=== PATIENT | male | born 1945 | race Caucasian/White ===

== ENCOUNTER 2016-11-17 19:58 | Inpatient (IN) | payer MEDICARE, BC ==
[~2016-11-17] VITALS: Ht 172.7 cm; Wt 65.0 kg
[~2016-11-17 19:58] MED LIST: RAMI10CA PO
[2016-11-17 20:02] VITALS: BP 193/84; PULSE 89; RESP 15; TEMP 98; O2SAT 98
--- NOTE | 2016-11-17 20:05 | PD ---
Physical Exam Date Seen by Provider: November 17, 2016 Time Seen by Provider: 20:02 Narrative 71 YOWM H/O L THIGH SARCOMA SURGERY September . NOW FOR THE PAST WEEK. POS D/C AND INCREASED PAIN. ON BACTRIM DS FOR 1 WEEK. NO N/V/F/C. PAIN 07/18. VSS AWAITING BED PLACEMENT MDM Medical Record Reviewed: No Supervised Visit with JAZLYN: Sriram Floyd November 17, 2016 20:05
--- NOTE | 2016-11-17 20:18 | PD ---
HPI Chief Complaint: Skin Problem Time Seen by Provider: 20:17 Travel History International Travel<30 days: No Contact w/Intl Traveler<30days: No Traveled to known affect area: No History of Present Illness HPI 71-year-old male with PMH of aortic stenosis, PAD, sarcoma of the left leg, resected 10/[address] Ronnie Berry in [place] presents to the ED for evaluation of 1 week history of increased redness and pain at the surgery site. Patient also complains of pain in the superior aspect of the anterior knee with flexion. He denies fevers, chills, nausea, vomiting. The patient states that he attempted to reach his surgeon who is out of [place]. He saw his primary care provider Dr. Rosa, who spoke with the surgeons partner and was placed on Bactrim DS. He endorses compliance of the medication without improvement of symptoms. PFSH Past Surgical History Cardiac Surgery: Yes (r. angioplasty) Social History Alcohol Use: No Tobacco Use: Yes (09/09 ppd) Substance Use: No Allergies-Medications (Allergen,Severity, Reaction): Coded Allergies: Cephalosporins (Verified Allergy, Severe, 11/17/16) Keflex (Verified Allergy, Severe, 11/17/16) Penicillin (Verified Allergy, Severe, 11/17/16) Reported Meds & Prescriptions Reported Meds & Active Scripts Active Reported Simvastatin 10 Mg Tab 10 Mg PO DAILY Ramipril 10 Mg Cap 10 Mg PO DAILY Review of Systems Except as stated in HPI: all other systems reviewed are Neg Physical Exam Narrative GENERAL: Well-nourished, well-developed pleasant white male in no acute distress. SKIN: Focused skin assessment warm/dry. There is a healing surgical wound on the lateral aspect of the distal left thigh. This is surrounded by a 2-3 cm area of warm, tender and edematous erythema. No fluctuance noted. No cellulitic streaking. HEAD: Normocephalic. EYES: No scleral icterus. No injection or drainage. NECK: Supple, trachea midline. No JVD or lymphadenopathy. CARDIOVASCULAR: Regular rate and rhythm. Harsh systolic murmur heard best over the right upper sternal border. No rubs or gallops noted. RESPIRATORY: Breath sounds clear and equal bilaterally. No accessory muscle use. GASTROINTESTINAL: Abdomen soft, non-tender, nondistended. Active bowel sounds. MUSCULOSKELETAL: No cyanosis, or edema. FOCUSED LEFT LOWER EXTREMITY EXAM: 2+ DP pulse. Tender to palpation of the superior aspect of the patella. Pain elicited with flexion of the knee. Some limitation to flexion which the patient states is chronic since his surgery. Patient otherwise retains full, active ROM of the extremity. Sensation intact to light touch distally. Cap refill less than 2 seconds. BACK: Nontender without obvious deformity. No CVA tenderness. Data Data Last Documented VS Vital Signs Date Time Temp Pulse Resp B/P Pulse Ox O2 Delivery O2 Flow Rate FiO2 11/17/16 20:02 98.0 89 15 193/84 98 Room Air Orders Complete Blood Count With Diff (11/17/16 20:33) Iv Access Insert/Monitor (11/17/16 20:33) Basic Metabolic Panel (Bmp) (11/17/16 20:33) C-Reactive Protein (Crp) (11/17/16 20:33) Westergren Sedimentation Rate (11/17/16 20:33) Femur (Ap & Lat/2vws) (11/17/16 20:33) Knee, Ltd (1 Or 2vws) (11/17/16 20:33) Blood Culture (11/17/16 21:21) Vancomycin Inj (Vancomycin Inj) (11/17/16 21:30) Admit Order (Ed Use Only) (11/17/16 22:13) Labs Laboratory Tests Test 11/17/16 21:00 White Blood Count 5.0 TH/MM3 Red Blood Count 4.22 MIL/MM3 Hemoglobin 13.6 GM/DL Hematocrit 39.3 % Mean Corpuscular Volume 93.0 FL Mean Corpuscular Hemoglobin 32.3 PG Mean Corpuscular Hemoglobin 34.7 % Concent Red Cell Distribution Width 12.9 % Platelet Count 159 TH/MM3 Mean Platelet Volume 8.3 FL Neutrophils (%) (Auto) 45.7 % Lymphocytes (%) (Auto) 26.6 % Monocytes (%) (Auto) 18.7 % Eosinophils (%) (Auto) 7.6 % Basophils (%) (Auto) 1.4 % Neutrophils # (Auto) 2.3 TH/MM3 Lymphocytes # (Auto) 1.3 TH/MM3 Monocytes # (Auto) 0.9 TH/MM3 Eosinophils # (Auto) 0.4 TH/MM3 Basophils # (Auto) 0.1 TH/MM3 CBC Comment DIFF FINAL Differential Comment Erythrocyte Sedimentation Rate 19 mm/hr Sodium Level 138 MEQ/L Potassium Level 4.3 MEQ/L Chloride Level 106 MEQ/L Carbon Dioxide Level 23.9 MEQ/L Anion Gap 8 MEQ/L Blood Urea Nitrogen 28 MG/DL Creatinine 1.65 MG/DL Estimat Glomerular Filtration 41 ML/MIN Rate Random Glucose 96 MG/DL Calcium Level 8.5 MG/DL C-Reactive Protein LESS THAN 0.29 MG/DL MDM Medical Decision Making Medical Screen Exam Complete: Yes Emergency Medical Condition: Yes Differential Diagnosis Cellulitis versus abscess versus wound infection versus sepsis versus other Narrative Course 71-year-old male with PMH of aortic stenosis, PAD, sarcoma of the left leg, resected 10/[address] Ronnie Berry in [place] presents to the ED for evaluation of 1 week history of increased redness and pain at the surgery site. Patient also complains of pain in the superior aspect of the anterior knee with flexion. He denies fevers, chills, nausea, vomiting. The patient states that he attempted to reach his surgeon who is out of country. He saw his primary care provider Dr. Rosa, who spoke with the surgeons partner and was placed on Bactrim DS. Oncology: Krochak. Vitals reviewed. Physical exam reveals a pleasant white male in no acute distress. There is a healing surgical wound on the lateral aspect of the distal left thigh surrounded by a 2- 3 cm area of warm, tender and edematous erythema. No fluctuance or cellulitic streaking noted. There is tenderness to palpation at the superior aspect of the patella with minor limitation to ROM, chronic since surgery. IV was established. Blood cultures were obtained. CBC: No leukocytosis BMP: BUN 28, creatinine 1.65 CRP less than 0.29 ESR 19 Xray: Prepatellar effusion. Administered 1 g IV vancomycin. He has failed outpatient treatment and will be admitted for further evaluation of left lower extremity cellulitis. I spoke with Dr. Fowler who agrees to accept the patient to the medicine service. Please see medicine notes for disposition Trini Mcduffie November 17, 2016 20:18
[2016-11-17] MEDS ORDERED: CLINDAMYCIN INJ 900 MG in SODIUM CHLORIDE 0.9% INJ 100 ML IV ONE (20:45)
--- NOTE | 2016-11-17 21:03 | RADRPT ---
EXAM DATE/TIME: 11/17/2016 20:44 [facility] COMPARISON: No previous studies available for comparison. INDICATIONS : Left femur pain, redness, and drainage at incision site post sarcoma removal on left lateral distal f emur/knee. MEDICAL HISTORY : None. SURGICAL HISTORY : Sarcoma removal, left femur/knee. ENCOUNTER: Initial ACUITY: 1 week PAIN SCORE: 3/10 LOCATION: Left femur. FINDINGS: Two view examination of the left femur demonstrates no evidence of fracture or dislocation. Bony min eralization is normal. There are surgical clips in the distal soft tissues. Vascular calcifications a re noted.. CONCLUSION: No acute bony findings Florian Cabello MD on November 17, 2016 at 21:01 Board Certified Radiologist. This report was verified electronically.
--- NOTE | 2016-11-17 21:04 | RADRPT ---
EXAM DATE/TIME: 11/17/2016 20:47 [facility] COMPARISON: No previous studies available for comparison. INDICATIONS : Left knee pain, tightness, redness, and drainage at incision site post sarcoma removal on left latera l lower femur/knee. MEDICAL HISTORY : None. SURGICAL HISTORY : Sarcoma removal, left femur/knee. ENCOUNTER: Initial ACUITY: 1 week PAIN SCORE: 3/10 LOCATION: Left knee. FINDINGS: The knee is intact without evidence of fracture, dislocation or bony destruction. There is some supra patellar soft tissue density which may indicate small effusion. Surgical clips are present in the dis karson thigh. Vascular calcifications are noted. CONCLUSION: Suprapatellar effusion or swelling. No acute bony findings. Florian Cabello MD on November 17, 2016 at 21:01 Board Certified Radiologist. This report was verified electronically.
[2016-11-17] MEDS ORDERED: RAMI10CA PO (21:07)
[2016-11-17] MEDS ORDERED: SIMV10TA PO (21:07)
[2016-11-17 21:27] LABS: AUTOMATED NEUTROPHIL # 2.3 TH/MM3 (1.8-7.7); BASOPHIL # 0.1 TH/MM3 (0-0.2); BASOPHIL % 1.4 % (0.0-2.0); EOSINOPHIL # 0.4 TH/MM3 (0-0.4); EOSINOPHIL % 7.6 % (0.0-4.0); HEMATOCRIT 39.3 % (39.0-51.0); HEMO FLAGS DIFF FINAL; LYMPH % 26.6 % (9.0-44.0); LYMPHOCYTE # 1.3 TH/MM3 (1.0-4.8); MEAN CORPUSCULAR HEMOGLOBIN 32.3 PG (27.0-34.0); MEAN CORPUSCULAR HGB CONC 34.7 % (32.0-36.0); MONO % 18.7 % (0.0-8.0); NEUT % 45.7 % (16.0-70.0); PLATELET COUNT 159 TH/MM3 (150-450); RED BLOOD COUNT 4.22 MIL/MM3 (4.50-5.90); RED CELL DISTRIBUTION WIDTH 12.9 % (11.6-17.2)
[2016-11-17] MEDS ORDERED: VANCOMYCIN INJ 1,000 MG in SODIUM CHLOR 0.9% 250 ML INJ 250 ML IV ONE (21:30)
[2016-11-17 22:06] LABS: ANION GAP 8 MEQ/L (5-15); BICARBONATE 23.9 MEQ/L (21.0-32.0); BLOOD UREA NITROGEN 28 MG/DL (7-18); CHLORIDE 106 MEQ/L (98-107); GLOMERULAR FILTRATION RATE 41 ML/MIN (>89); POTASSIUM 4.3 MEQ/L (3.5-5.1); SODIUM (NA) 138 MEQ/L (136-145)
--- NOTE | 2016-11-17 22:17 | PD ---
Physical Exam Narrative Patient was seen and examined with my offset assistant press operator. Data Data Last Documented VS Vital Signs Date Time Temp Pulse Resp B/P Pulse Ox O2 Delivery O2 Flow Rate FiO2 11/17/16 20:02 98.0 89 15 193/84 98 Room Air Orders Complete Blood Count With Diff (11/17/16 20:33) Iv Access Insert/Monitor (11/17/16 20:33) Basic Metabolic Panel (Bmp) (11/17/16 20:33) C-Reactive Protein (Crp) (11/17/16 20:33) Westergren Sedimentation Rate (11/17/16 20:33) Femur (Ap & Lat/2vws) (11/17/16 20:33) Knee, Ltd (1 Or 2vws) (11/17/16 20:33) Blood Culture (11/17/16 21:21) Vancomycin Inj (Vancomycin Inj) (11/17/16 21:30) Admit Order (Ed Use Only) (11/17/16 22:13) Labs Laboratory Tests Test 11/17/16 21:00 White Blood Count 5.0 TH/MM3 Red Blood Count 4.22 MIL/MM3 Hemoglobin 13.6 GM/DL Hematocrit 39.3 % Mean Corpuscular Volume 93.0 FL Mean Corpuscular Hemoglobin 32.3 PG Mean Corpuscular Hemoglobin 34.7 % Concent Red Cell Distribution Width 12.9 % Platelet Count 159 TH/MM3 Mean Platelet Volume 8.3 FL Neutrophils (%) (Auto) 45.7 % Lymphocytes (%) (Auto) 26.6 % Monocytes (%) (Auto) 18.7 % Eosinophils (%) (Auto) 7.6 % Basophils (%) (Auto) 1.4 % Neutrophils # (Auto) 2.3 TH/MM3 Lymphocytes # (Auto) 1.3 TH/MM3 Monocytes # (Auto) 0.9 TH/MM3 Eosinophils # (Auto) 0.4 TH/MM3 Basophils # (Auto) 0.1 TH/MM3 CBC Comment DIFF FINAL Differential Comment Erythrocyte Sedimentation Rate 19 mm/hr Sodium Level 138 MEQ/L Potassium Level 4.3 MEQ/L Chloride Level 106 MEQ/L Carbon Dioxide Level 23.9 MEQ/L Anion Gap 8 MEQ/L Blood Urea Nitrogen 28 MG/DL Creatinine 1.65 MG/DL Estimat Glomerular Filtration 41 ML/MIN Rate Random Glucose 96 MG/DL Calcium Level 8.5 MG/DL C-Reactive Protein LESS THAN 0.29 MG/DL MDM Supervised Visit with JAZLYN: Yes Narrative Course Patient was seen and examined with my offset assistant press operator. Agree with the plan. Tian Vides MD November 17, 2016 22:17
[2016-11-17] MEDS ORDERED: ACETAMINOPHEN/HYDROcodone 325 MG/5 MG TAB PO PRN (22:30)
[2016-11-17] MEDS ORDERED: Vancomycin Consult Pharmacy 1 EA OTHER SCH (22:30)
[2016-11-17] MEDS ORDERED: ACETAMINOPHEN 325 MG TAB PO PRN (22:30)
[2016-11-17] MEDS ORDERED: SODIUM CHLORIDE 0.9% FLUSH 10 ML FLUSH IV FLUSH PRN (22:30)
[2016-11-17] MEDS ORDERED: BISACODYL 10 MG SUPP RECTAL PRN (22:30)
[2016-11-17] MEDS ORDERED: ONDANSETRON HCL 4 MG/2 ML VIAL IVP PRN (22:30)
[2016-11-17] MEDS ORDERED: MORPHINE SULFATE 4 MG/ML INJ IV PRN (22:30)
--- NOTE | 2016-11-17 22:32 | HHI.HP ---
[facility] Service [place] [facility] Primary Care Physician Janes Segura M.D. Admission Diagnosis cellulitis left lower extremity Diagnoses: (1) Lower extremity cellulitis Diagnosis: Principal (2) Failure of outpatient treatment Diagnosis: Principal (3) Sarcoma Diagnosis: Principal (4) Renal insufficiency Diagnosis: Principal (5) HTN (hypertension) Diagnosis: Principal (6) Tobacco abuse Diagnosis: Principal Travel History International Travel<30 Days: No Contact w/Intl Traveler <30 Da: No Traveled to Known Affected Are: No History of Present Illness This is a 71-year-old male with a PMH of HTN, Aortic Stenosis and Left Leg Sarcoma s/p Resection who presented to the ER w/ complaints of progressive redness at surgical site. States he underwent Left Leg Sarcoma Resection on by Dr. Berry in [place], had been doing well post-operatively until approx 1wk ago when he noted redness and mild purulent drainage from surgical site. Seen by PCP who contacted surgeon in [place] and started on Bactrim x4 days w/ no improvement. On arrival, BP 193/84, HR 89, O2 sat 98% on RA, Afebrile. CBC essentially unremarkable. Creatinine 1.65, previously 1.13 on 07/25/16. Knee X-ray with suprapatellar effusion, no acute findings. Femur X -ray with no acute findings. S/p Blood Cultures and IV Vanc in ER. Review of Systems Except as stated in HPI: all other systems reviewed are Neg ROS: 14 point review of systems otherwise negative. Past Family Social History Past Medical History PMH: HTN, Aortic Stenosis and Left Leg Sarcoma s/p Resection Past Surgical History PAST SURGICAL HISTORY: Angioplasty, Back Fusion, Elbow Surgery, Sarcoma Removal Left Thigh Allergies: Coded Allergies: Cephalosporins (Verified Allergy, Severe, 11/17/16) Keflex (Verified Allergy, Severe, 11/17/16) Penicillin (Verified Allergy, Severe, 11/17/16) Family History PAST FAMILY HISTORY: Reviewed. No h/o DM or CAD Social History PAST SOCIAL HISTORY: Negative for alcohol or drugs. Smokes 3/4ppd. Physical Exam Vital Signs Vital Signs Date Time Temp Pulse Resp B/P Pulse Ox O2 Delivery O2 Flow Rate FiO2 11/17/16 20:02 98.0 89 15 193/84 98 Room Air Physical Exam PE: GENERAL: Extremely pleasant elderly white male in no acute distress. Daughter at bedside. HEENT: PERRLA, EOMI. No scleral icterus or conjunctival pallor. No lid lag or facial droop. CARDIOVASCULAR: Regular rate and rhythm. No obvious murmurs to auscultation. No chest tenderness to palpation. RESPIRATORY: No obvious rhonchi or wheezing. Clear to auscultation. Breath sounds equal bilaterally. GASTROINTESTINAL: Abdomen soft, non-tender, nondistended. BS normal. MUSCULOSKELETAL: Extremities without clubbing, cyanosis, or edema. No obvious deformities. Left thigh, surgical incision w/ surrounding erythema, no purulent drainage noted NEUROLOGICAL: Awake, alert and oriented x4. No focal neurologic deficits. Moving both upper and lower extremities spontaneously. Laboratory Laboratory Tests Test 11/17/16 21:00 White Blood Count 5.0 Red Blood Count 4.22 Hemoglobin 13.6 Hematocrit 39.3 Mean Corpuscular Volume 93.0 Mean Corpuscular Hemoglobin 32.3 Mean Corpuscular Hemoglobin 34.7 Concent Red Cell Distribution Width 12.9 Platelet Count 159 Mean Platelet Volume 8.3 Neutrophils (%) (Auto) 45.7 Lymphocytes (%) (Auto) 26.6 Monocytes (%) (Auto) 18.7 Eosinophils (%) (Auto) 7.6 Basophils (%) (Auto) 1.4 Neutrophils # (Auto) 2.3 Lymphocytes # (Auto) 1.3 Monocytes # (Auto) 0.9 Eosinophils # (Auto) 0.4 Basophils # (Auto) 0.1 CBC Comment DIFF FINAL Differential Comment Erythrocyte Sedimentation Rate 19 Sodium Level 138 Potassium Level 4.3 Chloride Level 106 Carbon Dioxide Level 23.9 Anion Gap 8 Blood Urea Nitrogen 28 Creatinine 1.65 Estimat Glomerular Filtration 41 Rate Random Glucose 96 Calcium Level 8.5 C-Reactive Protein LESS THAN 0.29 Date/Time Procedure Status Source Growth 11/17/16 21:40 Aerobic Blood Culture Received Blood Line Pending 11/17/16 21:40 Anaerobic Blood Culture Received Blood Line Pending Result Diagram: 11/17/16209911/17/162099 Assessment and Plan Problem List: (1) Lower extremity cellulitis ICD Code: L03.119 Status: Acute (2) Failure of outpatient treatment ICD Code: Z78.9 Status: Acute (3) Sarcoma ICD Code: C49.9 Status: Acute (4) Renal insufficiency ICD Code: N28.9 Status: Acute (5) HTN (hypertension) ICD Code: I10 Status: Acute (6) Tobacco abuse ICD Code: Z72.0 Status: Acute Assessment and Plan A/P: 1. Left Thigh Cellulitis: surgical site w/ surrounding erythema. Knee X-ray w / suprapatellar effusion, Femur X-ray with no acute bony abnormality, images reviewed by me. S/p Blood Cultures and IV Vanc in ER, follow up cultures, continue w/ IV Abx. 2. Failed Outpt Tx: On Bactrim as outpatient x4 days w/ no improvement, will continue w/ IV Abx as above. 3. Sarcoma: H/o Left Thigh Sarcoma s/p resection 10/03/[address] Berry in [place], has upcoming appt for outpatient follow up. 4. Renal Insufficiency: KALEE. Creatinine 1.65, previously 1.13 on 07/25/16, IVF for hydration, repeat labs in am. Hold Ramipril in light of renal insufficiency. 5. HTN: Normally well controlled on Ramipril, BP 190's on arrival, currently BP 136/61, HR 60. Will monitor. 6. Tobacco Abuse: Pt counselled on the need to quit. NicoDerm prn if needed. 7. DVT Prophylaxis: Mechanical contraindication in light of LE wound. 8. Social work for d/c planning as needed. 9. Case discussed w/ ER physician at length. Physician Certification 2 Midnight Certification Type: Admission for Inpatient Services Order for Inpatient Services The services are ordered in accordance with Medicare regulations or non- Medicare payer requirements, as applicable. In the case of services not specified as inpatient-only, they are appropriately provided as inpatient services in accordance with the 2-midnight benchmark. Estimated LOS (days): 2 days is the estimated time the patient will need to remain in the hospital, assuming treatment plan goals are met and no additional complications. Post-Hospital Plan: Not yet determined Yanelis Fowler MD November 17, 2016 22:32
[2016-11-17 22:40] VITALS: BP 132/63
[2016-11-17 23:17] VITALS: BP 136/61
[2016-11-18] VITALS: BP 152/67; PULSE 52; RESP 20; TEMP 96.5; O2SAT 99
[2016-11-18] MEDS: SODIUM CHLOR 0.9% 1000 ML INJ 1,000 ML IV SCH ×3 (01:40→18:23)
[2016-11-18 04:00] VITALS: BP 110/52; PULSE 59; RESP 20; TEMP 97.2; O2SAT 96
[2016-11-18 08:07] VITALS: BP 122/58; PULSE 57; RESP 18; TEMP 97.2; O2SAT 95
[2016-11-18 08:56] LABS: AUTOMATED NEUTROPHIL # 1.6 TH/MM3 (1.8-7.7); BASOPHIL # 0.1 TH/MM3 (0-0.2); BASOPHIL % 1.7 % (0.0-2.0); EOSINOPHIL # 0.3 TH/MM3 (0-0.4); HEMATOCRIT 38.3 % (39.0-51.0); HEMO FLAGS DIFF FINAL; LYMPHOCYTE # 0.9 TH/MM3 (1.0-4.8); MEAN CELL VOLUME 93.8 FL (80.0-100.0); MEAN CORPUSCULAR HEMOGLOBIN 31.3 PG (27.0-34.0); MEAN CORPUSCULAR HGB CONC 33.4 % (32.0-36.0); MONO % 20.2 % (0.0-8.0); NEUT % 45.1 % (16.0-70.0); PLATELET COUNT 149 TH/MM3 (150-450); RED BLOOD COUNT 4.08 MIL/MM3 (4.50-5.90); WHITE BLOOD COUNT 3.6 TH/MM3 (4.0-11.0)
[2016-11-18] MEDS: SODIUM CHLORIDE 0.9% FLUSH 10 ML FLUSH IV FLUSH SCH ×2 (08:58→21:00)
[2016-11-18] MEDS: PRAVASTATIN SOD 20 MG TAB PO SCH (08:58)
[2016-11-18 09:23] LABS: ALKALINE PHOSPHATASE 95 U/L (45-117); ALT (GPT) 17 U/L (12-78); AST (GOT) 19 U/L (15-37); BICARBONATE 24.6 MEQ/L (21.0-32.0); BLOOD UREA NITROGEN 20 MG/DL (7-18); CHLORIDE 108 MEQ/L (98-107); GLOMERULAR FILTRATION RATE 57 ML/MIN (>89); POTASSIUM 4.3 MEQ/L (3.5-5.1); SODIUM (NA) 139 MEQ/L (136-145); TOTAL BILIRUBIN ADULT 0.4 MG/DL (0.2-1.0)
[2016-11-18 09:24] LABS: ANION GAP 6 MEQ/L (5-15)
--- NOTE | 2016-11-18 09:25 | HHI.PR ---
Subjective Remarks The patient disimpact says does not have any fever or chills over night. Denies nausea or vomiting. He has constipation at times due to narcotic use. Pain is fairly controlled by medications. He is eating well. Objective Vitals Vital Signs Date Time Temp Pulse Resp B/P Pulse Ox O2 Delivery O2 Flow Rate FiO2 11/18/16 08:07 97.2 57 18 122/58 95 11/18/16 04:00 97.2 59 20 110/52 96 11/18/16 00:00 96.5 52 20 152/67 99 11/17/16 23:17 60 16 136/61 97 11/17/16 22:40 132/63 11/17/16 20:02 98.0 89 15 193/84 98 Room Air I/O 11/17/16 11/17/16 11/17/16 11/18/16 11/18/16 11/18/16 07:00 15:00 23:00 07:00 15:00 23:00 Intake Total 600 ml Output Total 1 ml Balance 599 ml Intake IV Total 600 ml Output Urine Total 1 ml # Voids 1 1 # Bowel Movements 0 Result Diagram: 11/18/16 0759 11/17/16 2100 Imaging Last Impressions Knee X-Ray 11/17/162032 Signed Impressions: Service Date/Time: Thursday, November 17, 2016 20:47 - CONCLUSION: Suprapatellar effusion or swelling. No acute bony findings. Florian Cabello MD Femur X-Ray 11/17/162032 Signed Impressions: Service Date/Time: Thursday, November 17, 2016 20:44 - CONCLUSION: No acute bony findings Florian Cablelo MD Objective Remarks GENERAL: Extremely pleasant elderly white male in no acute distress. Daughter at bedside. HEENT: PERRLA, EOMI. No scleral icterus or conjunctival pallor. No lid lag or facial droop. CARDIOVASCULAR: Regular rate and rhythm. No obvious murmurs to auscultation. No chest tenderness to palpation. RESPIRATORY: No obvious rhonchi or wheezing. Clear to auscultation. Breath sounds equal bilaterally. GASTROINTESTINAL: Abdomen soft, non-tender, nondistended. BS normal. MUSCULOSKELETAL: Extremities without clubbing, cyanosis, or edema. No obvious deformities. Left thigh, surgical incision w/ surrounding erythema, no purulent drainage noted NEUROLOGICAL: Awake, alert and oriented x4. No focal neurologic deficits. Moving both upper and lower extremities spontaneously. A/P Problem List: (1) Lower extremity cellulitis ICD Code: L03.119 Status: Acute (2) Failure of outpatient treatment ICD Code: Z78.9 Status: Acute (3) Sarcoma ICD Code: C49.9 Status: Acute (4) Renal insufficiency ICD Code: N28.9 Status: Acute (5) HTN (hypertension) ICD Code: I10 Status: Acute (6) Tobacco abuse ICD Code: Z72.0 Status: Acute Assessment and Plan Left Thigh Cellulitis: surgical site w/ surrounding erythema. Knee X-ray w/ suprapatellar effusion, Femur X-ray with no acute bony abnormality, images reviewed by me. S/p Blood Cultures and IV Vanc in ER, follow up cultures, continue w/ IV Abx. Failed Outpt Tx: On Bactrim as outpatient x4 days w/ no improvement, will continue w/ IV Abx as above. Sarcoma: H/o Left Thigh Sarcoma s/p resection 10/03/[address] Berry in [place], has upcoming appt for outpatient follow up. Renal Insufficiency: KALEE. Creatinine 1.65, previously 1.13 on 07/25/16, IVF for hydration, repeat labs in am. Hold Ramipril in light of renal insufficiency. HTN: Normally well controlled on Ramipril, BP 190's on arrival, currently BP 136/61, HR 60. Will monitor. Tobacco Abuse: Pt counselled on the need to quit. NicoDerm prn if needed. Constipation: Laxatives/stool softeners as needed DVT Prophylaxis: Mechanical contraindication in light of LE wound. CM consult for d/c planning as needed. Discussed with the patient, nurse Lizeth Pérez MD November 18, 2016 09:25
[2016-11-18 12:05] VITALS: BP 115/55; PULSE 61; RESP 19; TEMP 96.2; O2SAT 97
[2016-11-18 16:43] VITALS: BP 131/60; PULSE 55; RESP 19; TEMP 96.7; O2SAT 96
--- NOTE | 2016-11-18 17:19 | MB ---
cc: EVERARDO ORTIZ MD DATE OF CONSULTATION: 11/18/2016. REASON FOR CONSULTATION: Cellulitis of the left lower extremity. Failed outpatient antibiotics. History of sarcoma. REQUESTING PHYSICIAN: Dr. Pérez. 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 The patient received radiation therapy postop. He finished a course of 25 rounds of radiation therapy. The patient noted for the past week he was having some drainage of a very light amount of fluid from the left side at the incision and that the incision area was sore when rubbing against his pants. He was put on Bactrim for a week after he saw his physician and was not improving and therefore he was evaluated in the emergency department where he presented on 11/17/2016. The patient says that he was just getting full motion of his leg. He has been doing exercises to improve the motion. The patient was admitted to the hospital and started on IV antibiotics. He is currently on intravenous vancomycin. Blood cultures were taken and have no growth. His white blood cell count was normal yesterday at 5.0. Today's white count is low 3.6. Plain x-ray of the left femur showed no acute bony findings. There was some suprapatellar soft tissue density which may indicate a small effusion. The patient states that he feels fine. He has no other symptoms besides mild soreness at the surgical site. There is erythema along the incision but no significant swelling. There is an area with dried, crusty tissue at the incision around the mid area near the knee at the upper portion of the thigh. I was able to express a very few drops of clear yellow fluid. The rest of the incision is dry. The patient is comfortable. PAST MEDICAL HISTORY: 1. Hypertension. 2. Aortic stenosis. 3. 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 4. Back fusion surgery. 5. Elbow surgery. ALLERGIES: 1. PENICILLIN. 2. KEFLEX. 3. CEPHALOSPORIN. MEDICATIONS: 1. Vancomycin. 2. Pravachol. SOCIAL HISTORY: The patient smokes 3/4 pack of cigarettes a day. No alcohol use. No illicit drugs. FAMILY HISTORY: Family history is noncontributory. REVIEW OF SYSTEMS GENERAL No fever or chills. HEAD, EYES, EARS, NOSE, THROAT: No visual blurring or diplopia. No difficulty swallowing or soreness of the throat. No nasal drainage. NECK: No swelling or pain. CARDIOVASCULAR: No palpitations. No chest pain. RESPIRATORY: No cough. No shortness of breath. GASTROINTESTINAL: Denies nausea, vomiting, pain or diarrhea. GENITOURINARY: He denies urgency, frequency or dysuria. MUSCULOSKELETAL: Significant for mild soreness of the left thigh. ENDOCRINE: No polyuria. No polydipsia. HEMATOPOIETIC: No easy bruising or bleeding. PSYCHIATRIC: No mood problems or problems with depression. PHYSICAL EXAMINATION: GENERAL: This is a pleasant well-developed male who is in no acute distress. He is awake alert and oriented. VITAL SIGNS: The vital signs include a temperature of 96.2, blood pressure 115/55, respirations 19, heart rate 61. HEAD, EYES, EARS, NOSE, THROAT: Extraocular movements grossly intact. Pupils reactive to light. No icterus. Oropharynx with no visible lesions. NECK: The neck is supple without adenopathy. LUNGS: Clear breath sounds. HEART: Regular S1 and S2. No murmurs. No rubs. No gallops. ABDOMEN: Bowel sounds present, soft, nontender. RECTAL: Not performed. EXTREMITIES: The left lateral thigh has a surgical incision longitudinal. There is erythema along the incision and there is some crusted dried skin over the middle aspect of the incision. No tenderness on palpation. The left knee appears swollen. SKIN: No diffuse rash. NEUROLOGIC: Nonfocal. PSYCHIATRIC: The patient is calm and cooperative. LABORATORY DATA: WBCs 3.6, platelets 149,000, 20% monocytes, 24% lymphocytes, 45% neutrophils. Creatinine 1.24, BUN 20, sodium 139. Liver function tests normal. IMPRESSION: 1. Cellulitis of the left leg postop. 2. Patient status post resection of sarcoma from the left thigh. 3. Acute kidney injury. RECOMMENDATIONS: 1. Obtain a culture from the scant drainage occurring at the left lateral thigh wound. 2. Continue vancomycin. 3. Monitor the cultures to determine antibiotic treatment in a patient who has multiple antibiotic allergies. Thank you for this consultation. The patient's culture will be monitored and the antibiotic will be adjusted depending on the culture results. It might be difficult to determine antibiotic by mouth for this patient since he has low platelets on account of his Zyvox. If he does have gram-negative bacteria in the culture, it would probably be easier to treat if he has a bacteria which is sensitive to ciprofloxacin. Because of his kidney function, we may want to avoid Bactrim but it all depends on how his renal function improves over time. Thank you for this consultation. Everardo Ortiz MD FD/ANKUR /4:43 PM /5:02 PM
[2016-11-18 20:00] VITALS: BP 140/66; PULSE 65; RESP 20; TEMP 96.8; O2SAT 96
[2016-11-18] MEDS ORDERED: VANCOMYCIN 1,000 MG/NS 250 ML IV SCH ×2 (21:00)
[2016-11-19] VITALS: BP 127/60; PULSE 55; RESP 20; TEMP 96.3; O2SAT 97
[2016-11-19 04:00] VITALS: BP 123/58; PULSE 67; RESP 20; TEMP 96.3; O2SAT 95
[2016-11-19] MEDS: SODIUM CHLOR 0.9% 1000 ML INJ 1,000 ML IV SCH ×2 (04:23→13:51)
[2016-11-19 07:51] LABS: AUTOMATED NEUTROPHIL # 1.8 TH/MM3 (1.8-7.7); BASOPHIL # 0.1 TH/MM3 (0-0.2); BASOPHIL % 1.5 % (0.0-2.0); EOSINOPHIL # 0.3 TH/MM3 (0-0.4); HEMATOCRIT 38.7 % (39.0-51.0); HEMO FLAGS DIFF FINAL; LYMPH % 29.1 % (9.0-44.0); LYMPHOCYTE # 1.1 TH/MM3 (1.0-4.8); MEAN CELL VOLUME 93.8 FL (80.0-100.0); MEAN CORPUSCULAR HEMOGLOBIN 31.6 PG (27.0-34.0); MEAN CORPUSCULAR HGB CONC 33.7 % (32.0-36.0); MONO % 17.2 % (0.0-8.0); NEUT % 45.2 % (16.0-70.0); PLATELET COUNT 139 TH/MM3 (150-450); RED BLOOD COUNT 4.13 MIL/MM3 (4.50-5.90); RED CELL DISTRIBUTION WIDTH 13.1 % (11.6-17.2); WHITE BLOOD COUNT 3.9 TH/MM3 (4.0-11.0)
[2016-11-19 08:11] VITALS: BP 138/63; PULSE 57; RESP 18; TEMP 96; O2SAT 95
[2016-11-19 08:20] LABS: BICARBONATE 24.8 MEQ/L (21.0-32.0); POTASSIUM 4.6 MEQ/L (3.5-5.1)
[2016-11-19] MEDS: SODIUM CHLORIDE 0.9% FLUSH 10 ML FLUSH IV FLUSH SCH ×2 (09:00→21:17)
[2016-11-19] MEDS: PRAVASTATIN SOD 20 MG TAB PO SCH (10:10)
--- NOTE | 2016-11-19 10:53 | HHI.PR ---
Subjective Remarks Patient seen and examined this morning. His vitals are stable he's afebrile. Feels well without complaints. Family at bedside. Asking for med to have BM. Objective Vital Signs Date Time Temp Pulse Resp B/P Pulse Ox O2 Delivery O2 Flow Rate FiO2 11/19/16 08:11 96.0 57 18 138/63 95 11/19/16 04:00 96.3 67 20 123/58 95 11/19/16 00:00 96.3 55 20 127/60 97 11/18/16 20:00 96.8 65 20 140/66 96 11/18/16 16:43 96.7 55 19 131/60 96 11/18/16 12:05 96.2 61 19 115/55 97 I/O 11/18/16 11/18/16 11/18/16 11/19/16 11/19/16 11/19/16 07:00 15:00 23:00 07:00 15:00 23:00 Intake Total 600 ml 2352 ml 60 ml Output Total 1 ml Balance 599 ml 2352 ml 60 ml Intake Oral 360 ml 60 ml IV Total 600 ml 1992 ml Output Urine Total 1 ml # Voids 1 1 4 4 # Bowel Movements 0 0 0 Result Diagram: 11/19/16 0706 11/19/16 07 Imaging Last Impressions Knee X-Ray 11/17/162032 Signed Impressions: Service Date/Time: Thursday, November 17, 2016 20:47 - CONCLUSION: Suprapatellar effusion or swelling. No acute bony findings. Florian Cabello MD Femur X-Ray 11/17/162032 Signed Impressions: Service Date/Time: Thursday, November 17, 2016 20:44 - CONCLUSION: No acute bony findings Florian Cabello MD Objective Remarks GENERAL: Extremely pleasant elderly white male in no acute distress. Daughter at bedside. HEENT: PERRLA, EOMI. No scleral icterus or conjunctival pallor. No lid lag or facial droop. CARDIOVASCULAR: Regular rate and rhythm. No obvious murmurs to auscultation. No chest tenderness to palpation. RESPIRATORY: No obvious rhonchi or wheezing. Clear to auscultation. Breath sounds equal bilaterally. GASTROINTESTINAL: Abdomen soft, non-tender, nondistended. BS normal. MUSCULOSKELETAL: Extremities without clubbing, cyanosis, or edema. No obvious deformities. Left thigh, surgical incision w/ surrounding erythema, dry purulent drainage is present but not actively draining. NEUROLOGICAL: Awake, alert and oriented x4. No focal neurologic deficits. Moving both upper and lower extremities spontaneously. A/P Problem List: (1) Sarcoma ICD Code: C49.9 (2) Renal insufficiency ICD Code: N28.9 (3) Tobacco abuse ICD Code: Z72.0 (4) HTN (hypertension) ICD Code: I10 (5) Lower extremity cellulitis ICD Code: L03.119 (6) Failure of outpatient treatment ICD Code: Z78.9 Assessment and Plan 71-year-old male with Left Thigh Cellulitis: surgical site w/ surrounding erythema. Knee X-ray w/ suprapatellar effusion, Femur X-ray with no acute bony abnormality. Blood cultures negative x 2 days. Continue vancomycin. ID consulted to assist with abx coverage. Failed Outpt Tx: On Bactrim as outpatient x4 days w/ no improvement, will continue w/ IV Abx as above. Sarcoma: H/o Left Thigh Sarcoma s/p resection 10/03/[address] Berry in [place], has upcoming appt for outpatient follow up. Renal Insufficiency: KALEE. Improving. Hold Ramipril in light of renal insufficiency. HTN: well controlled on Ramipril Tobacco Abuse: Pt counselled on the need to quit. NicoDerm prn if needed. Constipation: Laxatives/stool softeners as needed, milk of mag now. DVT Prophylaxis: Renally dosed Lovenox CM consult for d/c planning as needed. Discharge Planning DC pending clinical improvement, follow cultures. Abx coverage per ID. Jo-Ann Simental MD R3 November 19, 2016 10:53
[2016-11-19] MEDS ORDERED: MAGNESIUM HYDROXIDE SUSP 30 ML CUP PO ONE (11:30)
[2016-11-19 12:44] VITALS: BP 135/62; PULSE 56; RESP 18; TEMP 95.9; O2SAT 98
[2016-11-19] MEDS: VANCOMYCIN 1,000 MG/NS 250 ML IV SCH ×2 (14:02)
[2016-11-19] MEDS: ENOXAPARIN SODIUM 30 MG/0.3 ML SYRINGE SQ SCH (16:00)
--- NOTE | 2016-11-19 16:40 | HHI.IDPN ---
Note Infectious Disease Note Patient complains of swelling of his left knee. Unable to fully bend the knee. Afebrile. PAST MEDICAL HISTORY: 1. Hypertension. 2. Aortic stenosis. 3. 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 4. Back fusion surgery. 5. Elbow surgery. ALLERGIES: 1. PENICILLIN. 2. KEFLEX. 3. CEPHALOSPORIN. ANTIBIOTICS: Vancomycin. OBJECTIVE: Vital Signs Date Time Temp Pulse Resp B/P Pulse Ox O2 Delivery O2 Flow Rate FiO2 11/19/16 12:44 95.9 56 18 135/62 98 11/19/16 08:11 96.0 57 18 138/63 95 11/19/16 04:00 96.3 67 20 123/58 95 11/19/16 00:00 96.3 55 20 127/60 97 11/18/16 20:00 96.8 65 20 140/66 96 11/18/16 16:43 96.7 55 19 131/60 96 11/18/16 11/18/16 11/19/16 15:00 23:00 07:00 Intake Total 2352 ml 60 ml Balance 2352 ml 60 ml Intake Oral 360 ml 60 ml IV Total 1992 ml # Voids 1 4 4 # Bowel Movements 0 0 Laboratory Tests Test 11/17/16 11/18/16 11/19/16 21:00 07:59 07:06 White Blood Count 5.0 TH/MM3 3.6 TH/MM3 3.9 TH/MM3 Red Blood Count 4.22 MIL/MM3 4.08 MIL/MM3 4.13 MIL/MM3 Hemoglobin 13.6 GM/DL 12.8 GM/DL 13.1 GM/DL Hematocrit 39.3 % 38.3 % 38.7 % Mean Corpuscular Volume 93.0 FL 93.8 FL 93.8 FL Mean Corpuscular Hemoglobin 32.3 PG 31.3 PG 31.6 PG Mean Corpuscular Hemoglobin 34.7 % 33.4 % 33.7 % Concent Red Cell Distribution Width 12.9 % 13.0 % 13.1 % Platelet Count 159 TH/MM3 149 TH/MM3 139 TH/MM3 Mean Platelet Volume 8.3 FL 8.9 FL 8.4 FL Neutrophils (%) (Auto) 45.7 % 45.1 % 45.2 % Lymphocytes (%) (Auto) 26.6 % 24.0 % 29.1 % Monocytes (%) (Auto) 18.7 % 20.2 % 17.2 % Eosinophils (%) (Auto) 7.6 % 9.0 % 7.0 % Basophils (%) (Auto) 1.4 % 1.7 % 1.5 % Neutrophils # (Auto) 2.3 TH/MM3 1.6 TH/MM3 1.8 TH/MM3 Lymphocytes # (Auto) 1.3 TH/MM3 0.9 TH/MM3 1.1 TH/MM3 Monocytes # (Auto) 0.9 TH/MM3 0.7 TH/MM3 0.7 TH/MM3 Eosinophils # (Auto) 0.4 TH/MM3 0.3 TH/MM3 0.3 TH/MM3 Basophils # (Auto) 0.1 TH/MM3 0.1 TH/MM3 0.1 TH/MM3 CBC Comment DIFF FINAL DIFF FINAL DIFF FINAL Differential Comment Erythrocyte Sedimentation Rate 19 mm/hr Laboratory Tests Test 11/17/16 11/18/16 11/19/16 21:00 07:59 07:06 Sodium Level 138 MEQ/L 139 MEQ/L 139 MEQ/L Potassium Level 4.3 MEQ/L 4.3 MEQ/L 4.6 MEQ/L Chloride Level 106 MEQ/L 108 MEQ/L 109 MEQ/L Carbon Dioxide Level 23.9 MEQ/L 24.6 MEQ/L 24.8 MEQ/L Anion Gap 8 MEQ/L 6 MEQ/L 5 MEQ/L Blood Urea Nitrogen 28 MG/DL 20 MG/DL 12 MG/DL Creatinine 1.65 MG/DL 1.24 MG/DL 1.08 MG/DL Estimat Glomerular Filtration 41 ML/MIN 57 ML/MIN 67 ML/MIN Rate Random Glucose 96 MG/DL 85 MG/DL 88 MG/DL Calcium Level 8.5 MG/DL 8.2 MG/DL 8.4 MG/DL C-Reactive Protein LESS THAN 0.29 MG/DL Total Bilirubin 0.4 MG/DL Aspartate Amino Transf 19 U/L (AST/SGOT) Alanine Aminotransferase 17 U/L (ALT/SGPT) Alkaline Phosphatase 95 U/L Total Protein 6.6 GM/DL Albumin 3.3 GM/DL Microbiology Date/Time Procedure Status Source Growth 11/17/16 21:20 Aerobic Blood Culture - Preliminary Resulted Blood Line NO GROWTH IN 2 DAYS 11/17/16 21:20 Anaerobic Blood Culture - Preliminary Resulted Blood Line NO GROWTH IN 2 DAYS 11/17/16 21:40 Aerobic Blood Culture - Preliminary Resulted Blood Line NO GROWTH IN 2 DAYS 11/17/16 21:40 Anaerobic Blood Culture - Preliminary Resulted Blood Line NO GROWTH IN 2 DAYS PHYSICAL EXAMINATION: GENERAL: No acute distress. He is awake alert and oriented. HEAD, EYES, EARS, NOSE, THROAT: No icterus. Oropharynx with no visible lesions. NECK: The neck is supple without adenopathy. LUNGS: Clear breath sounds. HEART: Regular S1 and S2. No murmurs. No rubs. No gallops. ABDOMEN: Bowel sounds present, soft, nontender. EXTREMITIES: The left lateral thigh has a surgical incision longitudinal. The erythema along the incision is decreased. The left knee remains swollen. SKIN: No diffuse rash. NEUROLOGIC: Nonfocal. PSYCHIATRIC: The patient is calm and cooperative. IMPRESSION: 1. Cellulitis of the left leg postop. 2. Patient status post resection of sarcoma from the left thigh. 3. Acute kidney injury. RECOMMENDATIONS: 1. Monitor wound culture. 2. Continue vancomycin. 3. Orthopedic consult for l. knee swelling. Could probably be discharged on PO antibiotics tomorrow. Tj Diaz MD November 19, 2016 16:40
[2016-11-19 16:46] VITALS: BP 148/67; PULSE 56; RESP 16; TEMP 96.4; O2SAT 95
[2016-11-19 20:00] VITALS: BP_SYST 124; BP_SYST 137; BP_DIAS 60; BP_DIAS 66; PULSE 60; PULSE 61; RESP 20; TEMP 96.7; TEMP 98.1; O2SAT 96; O2SAT 98
[2016-11-19] MEDS: DOCUSATE SODIUM 50 MG/SENNA 8.6 MG TAB PO SCH (21:17)
[2016-11-20] MEDS: SODIUM CHLOR 0.9% 1000 ML INJ 1,000 ML IV SCH ×3 (00:23→19:38)
[2016-11-20 04:00] VITALS: BP 120/58; PULSE 67; RESP 20; TEMP 97; O2SAT 97
[2016-11-20 06:57] LABS: AUTOMATED NEUTROPHIL # 2.6 TH/MM3 (1.8-7.7); BASOPHIL # 0.1 TH/MM3 (0-0.2); BASOPHIL % 1.7 % (0.0-2.0); EOSINOPHIL # 0.4 TH/MM3 (0-0.4); EOSINOPHIL % 6.8 % (0.0-4.0); HEMATOCRIT 42.7 % (39.0-51.0); HEMO FLAGS DIFF FINAL; LYMPH % 30.3 % (9.0-44.0); LYMPHOCYTE # 1.6 TH/MM3 (1.0-4.8); MEAN CELL VOLUME 94.5 FL (80.0-100.0); MEAN CORPUSCULAR HEMOGLOBIN 30.8 PG (27.0-34.0); MEAN CORPUSCULAR HGB CONC 32.6 % (32.0-36.0); MONO % 12.6 % (0.0-8.0); NEUT % 48.6 % (16.0-70.0); PLATELET COUNT 150 TH/MM3 (150-450); RED BLOOD COUNT 4.52 MIL/MM3 (4.50-5.90); RED CELL DISTRIBUTION WIDTH 12.9 % (11.6-17.2); WHITE BLOOD COUNT 5.3 TH/MM3 (4.0-11.0)
[2016-11-20 07:25] LABS: BICARBONATE 26.4 MEQ/L (21.0-32.0); POTASSIUM 4.5 MEQ/L (3.5-5.1)
[2016-11-20 07:48] VITALS: BP 129/66; PULSE 64; RESP 18; TEMP 95.7; O2SAT 97
[2016-11-20] MEDS: DOCUSATE SODIUM 50 MG/SENNA 8.6 MG TAB PO SCH (09:13)
[2016-11-20] MEDS: SODIUM CHLORIDE 0.9% FLUSH 10 ML FLUSH IV FLUSH SCH (09:13)
[2016-11-20] MEDS: PRAVASTATIN SOD 20 MG TAB PO SCH (09:13)
[2016-11-20] MEDS: VANCOMYCIN 1,000 MG/NS 250 ML IV SCH ×2 (09:13)
--- NOTE | 2016-11-20 10:54 | HHI.PR ---
Subjective Remarks Follow up for left knee pain, cellulitis. Patient is doing well. However, he complains of persistent left knee pain on any movement. No fever, chills. Objective Vitals Vital Signs Date Time Temp Pulse Resp B/P Pulse Ox O2 Delivery O2 Flow Rate FiO2 11/20/16 07:48 95.7 64 18 129/66 97 11/20/16 04:00 97.0 67 20 120/58 97 11/19/16 20:00 98.1 60 20 137/66 98 11/19/16 20:00 96.7 61 20 124/60 96 11/19/16 16:46 96.4 56 16 148/67 95 11/19/16 12:44 95.9 56 18 135/62 98 I/O 11/19/16 11/19/16 11/19/16 11/20/16 11/20/16 11/20/16 07:00 15:00 23:00 07:00 15:00 23:00 Intake Total 60 ml 240 ml 60 ml Output Total 880 ml Balance 60 ml -640 ml 60 ml Intake Oral 60 ml 240 ml 60 ml Output Urine Total 880 ml # Voids 4 1 2 # Bowel Movements 0 0 0 Result Diagram: 11/20/16 0600 11/20/16 0606 Imaging Last Impressions Knee X-Ray 11/17/162032 Signed Impressions: Service Date/Time: Thursday, November 17, 2016 20:47 - CONCLUSION: Suprapatellar effusion or swelling. No acute bony findings. Florian Cabello MD Femur X-Ray 11/17/162032 Signed Impressions: Service Date/Time: Thursday, November 17, 2016 20:44 - CONCLUSION: No acute bony findings Florian Cabello MD Objective Remarks GENERAL: AOX3. NAD. SKIN: Warm and dry. HEAD: Normocephalic. EYES: No scleral icterus. No injection or drainage. NECK: Supple, trachea midline. No JVD or lymphadenopathy. CARDIOVASCULAR: Regular rate and rhythm without murmurs, gallops, or rubs. RESPIRATORY: Breath sounds equal bilaterally. No accessory muscle use. GASTROINTESTINAL: Abdomen soft, non-tender, nondistended. MUSCULOSKELETAL: No cyanosis, or edema. Left lower thigh, lateral aspect s/p sarcoma surgery, mild erythema. Pain on left knee movement. BACK: Nontender without obvious deformity. No CVA tenderness. Procedures None. A/P Problem List: (1) Lower extremity cellulitis ICD Code: L03.119 Status: Acute (2) Failure of outpatient treatment ICD Code: Z78.9 Status: Acute (3) Sarcoma ICD Code: C49.9 Status: Acute (4) Renal insufficiency ICD Code: N28.9 Status: Acute (5) HTN (hypertension) ICD Code: I10 Status: Acute (6) Tobacco abuse ICD Code: Z72.0 Status: Acute Assessment and Plan This is a 71-year-old male with a PMH of HTN, Aortic Stenosis and Left Leg Sarcoma s/p Resection who presented to the ER w/ complaints of progressive redness at surgical site. States he underwent Left Leg Sarcoma Resection on by Dr. Berry in [place], had been doing well post-operatively until approx 1wk ago when he noted redness and mild purulent drainage from surgical site. Seen by PCP who contacted surgeon in [place] and started on Bactrim x4 days w/ no improvement. - Left Thigh Cellulitis: surgical site w/ surrounding erythema. Knee X-ray w/ suprapatellar effusion, Femur X-ray with no acute bony abnormality. Blood cultures negative x 2 days. - Continue vancomycin. ID following. - Failed outpatient treatment with Bactrim x4 days w/ no improvement, will continue w/ IV Abx as above. - Left knee pain - ID consulted Orthopedic surgery. Dr. Lyons is out of office and thus a new consult placed for Dr. Elaine who is covering Dr. Lyons. - Continue [place] for pain. - IF no further work up indicated and Orthopedic surgery clears, patient can potentially be discharged on oral abx today. - Sarcoma: H/o Left Thigh Sarcoma s/p resection 10/03/[address] Berry in [place], has upcoming appt for outpatient follow up. - Acute kidney injury - Improved. Creatinine 1.65 --> 1.13. HTN: well controlled on Ramipril Tobacco Abuse: Pt counselled on the need to quit. NicoDerm prn if needed. Constipation: Laxatives/stool softeners as needed, milk of mag now. Full code. Lovenox. Faustina Mai DO November 20, 2016 10:54 am
[2016-11-20 11:55] VITALS: BP 157/66; PULSE 52; RESP 18; TEMP 96.5; O2SAT 97
--- NOTE | 2016-11-20 12:48 | HHI.IDPN ---
Note Infectious Disease Note Patient continue to complain of swelling of his left knee. Unable to fully bend the knee. Afebrile. No drainage from l. thigh incision. PAST MEDICAL HISTORY: 1. Hypertension. 2. Aortic stenosis. 3. 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 4. Back fusion surgery. 5. Elbow surgery. ALLERGIES: 1. PENICILLIN. 2. KEFLEX. 3. CEPHALOSPORIN. ANTIBIOTICS: Vancomycin. OBJECTIVE: Vital Signs Date Time Temp Pulse Resp B/P Pulse Ox O2 Delivery O2 Flow Rate FiO2 11/19/16 12:44 95.9 56 18 135/62 98 11/19/16 08:11 96.0 57 18 138/63 95 11/19/16 04:00 96.3 67 20 123/58 95 11/19/16 00:00 96.3 55 20 127/60 97 11/18/16 20:00 96.8 65 20 140/66 96 11/18/16 16:43 96.7 55 19 131/60 96 11/18/16 11/18/16 11/19/16 15:00 23:00 07:00 Intake Total 2352 ml 60 ml Balance 2352 ml 60 ml Intake Oral 360 ml 60 ml IV Total 1992 ml # Voids 1 4 4 # Bowel Movements 0 0 Laboratory Tests Test 11/17/16 11/18/16 11/19/16 21:00 07:59 07:06 White Blood Count 5.0 TH/MM3 3.6 TH/MM3 3.9 TH/MM3 Red Blood Count 4.22 MIL/MM3 4.08 MIL/MM3 4.13 MIL/MM3 Hemoglobin 13.6 GM/DL 12.8 GM/DL 13.1 GM/DL Hematocrit 39.3 % 38.3 % 38.7 % Mean Corpuscular Volume 93.0 FL 93.8 FL 93.8 FL Mean Corpuscular Hemoglobin 32.3 PG 31.3 PG 31.6 PG Mean Corpuscular Hemoglobin 34.7 % 33.4 % 33.7 % Concent Red Cell Distribution Width 12.9 % 13.0 % 13.1 % Platelet Count 159 TH/MM3 149 TH/MM3 139 TH/MM3 Mean Platelet Volume 8.3 FL 8.9 FL 8.4 FL Neutrophils (%) (Auto) 45.7 % 45.1 % 45.2 % Lymphocytes (%) (Auto) 26.6 % 24.0 % 29.1 % Monocytes (%) (Auto) 18.7 % 20.2 % 17.2 % Eosinophils (%) (Auto) 7.6 % 9.0 % 7.0 % Basophils (%) (Auto) 1.4 % 1.7 % 1.5 % Neutrophils # (Auto) 2.3 TH/MM3 1.6 TH/MM3 1.8 TH/MM3 Lymphocytes # (Auto) 1.3 TH/MM3 0.9 TH/MM3 1.1 TH/MM3 Monocytes # (Auto) 0.9 TH/MM3 0.7 TH/MM3 0.7 TH/MM3 Eosinophils # (Auto) 0.4 TH/MM3 0.3 TH/MM3 0.3 TH/MM3 Basophils # (Auto) 0.1 TH/MM3 0.1 TH/MM3 0.1 TH/MM3 CBC Comment DIFF FINAL DIFF FINAL DIFF FINAL Differential Comment Erythrocyte Sedimentation Rate 19 mm/hr Laboratory Tests Test 11/17/16 11/18/16 11/19/16 21:00 07:59 07:06 Sodium Level 138 MEQ/L 139 MEQ/L 139 MEQ/L Potassium Level 4.3 MEQ/L 4.3 MEQ/L 4.6 MEQ/L Chloride Level 106 MEQ/L 108 MEQ/L 109 MEQ/L Carbon Dioxide Level 23.9 MEQ/L 24.6 MEQ/L 24.8 MEQ/L Anion Gap 8 MEQ/L 6 MEQ/L 5 MEQ/L Blood Urea Nitrogen 28 MG/DL 20 MG/DL 12 MG/DL Creatinine 1.65 MG/DL 1.24 MG/DL 1.08 MG/DL Estimat Glomerular Filtration 41 ML/MIN 57 ML/MIN 67 ML/MIN Rate Random Glucose 96 MG/DL 85 MG/DL 88 MG/DL Calcium Level 8.5 MG/DL 8.2 MG/DL 8.4 MG/DL C-Reactive Protein LESS THAN 0.29 MG/DL Total Bilirubin 0.4 MG/DL Aspartate Amino Transf 19 U/L (AST/SGOT) Alanine Aminotransferase 17 U/L (ALT/SGPT) Alkaline Phosphatase 95 U/L Total Protein 6.6 GM/DL Albumin 3.3 GM/DL Microbiology Date/Time Procedure Status Source Growth 11/17/16 21:20 Aerobic Blood Culture - Preliminary Resulted Blood Line NO GROWTH IN 2 DAYS 11/17/16 21:20 Anaerobic Blood Culture - Preliminary Resulted Blood Line NO GROWTH IN 2 DAYS 11/17/16 21:40 Aerobic Blood Culture - Preliminary Resulted Blood Line NO GROWTH IN 2 DAYS 11/17/16 21:40 Anaerobic Blood Culture - Preliminary Resulted Blood Line NO GROWTH IN 2 DAYS PHYSICAL EXAMINATION: GENERAL: No acute distress. He is awake alert and oriented. HEAD, EYES, EARS, NOSE, THROAT: No icterus. Oropharynx with no visible lesions. NECK: The neck is supple without adenopathy. LUNGS: Clear breath sounds. HEART: Regular S1 and S2. No murmurs. No rubs. No gallops. ABDOMEN: Bowel sounds present, soft, nontender. EXTREMITIES: The left lateral thigh has a surgical incision longitudinal. The erythema along the incision is decreased. The left knee remains swollen. SKIN: No diffuse rash. NEUROLOGIC: Nonfocal. PSYCHIATRIC: The patient is calm and cooperative. IMPRESSION: 1. Cellulitis of the left leg postop. 2. Patient status post resection of sarcoma from the left thigh. 3. Acute kidney injury. RECOMMENDATIONS: 1. Monitor wound culture. 2. Orthopedic consult for l. knee swelling pending. 3. Can be discharged on PO doxycycline 100mg PO bid x 7 days once ortho sees him. Keep on Vancomycin if he needs ortho intervention. Tj Diaz MD November 20, 2016 12:48
[2016-11-20 15:50] VITALS: BP 150/64; PULSE 62; RESP 18; TEMP 97.3; O2SAT 97
[2016-11-20] MEDS: ENOXAPARIN SODIUM 30 MG/0.3 ML SYRINGE SQ SCH (16:53)
--- NOTE | 2016-11-20 19:48 | PD.CONS ---
HPI Service Orthopedic Surgeons Consult Requested By Reason for Consult Severe left knee pain Primary Care Physician Janes Segura M.D. 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 Patient develop cellulitis to left thigh to the distal aspect of incision with severe pain to left knee. He was brought to [facility] ED for further evaluation. X-rays were done, which demonstrated suprapatella effusion. No acute bony findings. Patient was admitted to medical with consultation to orthopedics. Past Family Social History Past Medical History PMH: HTN, Aortic Stenosis and Left Leg Sarcoma s/p Resection Past Surgical History PAST SURGICAL HISTORY: Angioplasty, Back Fusion, Elbow Surgery, Sarcoma Removal Left Thigh Allergies: Coded Allergies: Cephalosporins (Verified Allergy, Severe, 11/17/16) Keflex (Verified Allergy, Severe, 11/17/16) Penicillin (Verified Allergy, Severe, 11/17/16) Active Ordered Medications Current Medications Medications (Trade) Dose Ordered Sig/Smith Route Start Time Stop Time Status Last Admin Pharmacy Profile Note 0 ml @ 0 mls/hr UNSCH OTHER 11/17/16 22:30 (NS 1000 ml Inj) 1,000 ml @ 100 mls/hr Q10H IV 11/17/16 22:23 11/19/16 13:51 (NS Flush) 2 ml UNSCH PRN IV FLUSH 11/17/16 22:30 (NS Flush) 2 ml BID IV FLUSH 11/18/16 09:00 11/20/16 09:13 (Zofran Inj) 4 mg Q6H PRN IVP 11/17/16 22:30 (Dulcolax Supp) 10 mg DAILY PRN RECTAL 11/17/16 22:30 (Tylenol) 650 mg Q6H PRN PO 11/17/16 22:30 ([place] 5-325 Mg) 1 tab Q4H PRN PO 11/17/16 22:30 (Morphine Inj) 2 mg Q3H PRN IV 11/17/16 22:30 (Pravachol) 20 mg DAILY PO 11/18/16 09:00 11/20/16 09:13 Miscellaneous Information SPECIFIC LAB TO BE NU... ONCE ONCE .XX 11/21/16 02:45 11/21/16 02:46 (Lovenox Inj) 30 mg Q24H SQ 11/19/16 16:00 11/20/16 16:53 Senna/Docusate Sodium 1 tab 1 tab BID PO 11/19/16 21:00 11/20/16 09:13 (Vancomycin Inj/ NS 250 ml Inj) 250 ml @ 250 mls/hr Q18H IV 11/19/16 15:00 11/20/16 09:13 Reported Meds & Active Scripts Active Reported Simvastatin 10 Mg Tab 10 Mg PO DAILY Ramipril 10 Mg Cap 10 Mg PO DAILY Family History PAST FAMILY HISTORY: Reviewed. No h/o DM or CAD Social History PAST SOCIAL HISTORY: Negative for alcohol or drugs. Smokes 3/4ppd. Physical Exam Vital Signs Vital Signs Date Time Temp Pulse Resp B/P Pulse Ox O2 Delivery O2 Flow Rate FiO2 11/20/16 15:50 97.3 62 18 150/64 97 11/20/16 11:55 96.5 52 18 157/66 97 11/20/16 07:48 95.7 64 18 129/66 97 11/20/16 04:00 97.0 67 20 120/58 97 11/19/16 20:00 98.1 60 20 137/66 98 11/19/16 20:00 96.7 61 20 124/60 96 Physical Exam Left knee 0/0/85 skin intact minimal effusion able to reproduce pain with flexion of knee no erythema noted calves soft negative Homans 2+ dorsalis pedis pulses Left thigh mild erythema minimal serous drainage note to distal aspect of incision Laboratory Laboratory Tests Test 11/20/16 11/20/16 06:00 06:06 White Blood Count 5.3 Red Blood Count 4.52 Hemoglobin 13.9 Hematocrit 42.7 Mean Corpuscular Volume 94.5 Mean Corpuscular Hemoglobin 30.8 Mean Corpuscular Hemoglobin 32.6 Concent Red Cell Distribution Width 12.9 Platelet Count 150 Mean Platelet Volume 8.9 Neutrophils (%) (Auto) 48.6 Lymphocytes (%) (Auto) 30.3 Monocytes (%) (Auto) 12.6 Eosinophils (%) (Auto) 6.8 Basophils (%) (Auto) 1.7 Neutrophils # (Auto) 2.6 Lymphocytes # (Auto) 1.6 Monocytes # (Auto) 0.7 Eosinophils # (Auto) 0.4 Basophils # (Auto) 0.1 CBC Comment DIFF FINAL Differential Comment Sodium Level 138 Potassium Level 4.5 Chloride Level 105 Carbon Dioxide Level 26.4 Anion Gap 7 Blood Urea Nitrogen 11 Creatinine 1.13 Estimat Glomerular Filtration 64 Rate Random Glucose 97 Calcium Level 8.8 Date/Time Procedure Status Source Growth 11/19/16 16:27 Gram Stain - Final Resulted Wound Thigh 11/19/16 16:27 Wound Culture - Preliminary Resulted Wound Thigh NO GROWTH IN 24 HOURS. 11/17/16 21:40 Aerobic Blood Culture - Preliminary Resulted Blood Line NO GROWTH IN 3 DAYS 11/17/16 21:40 Anaerobic Blood Culture - Preliminary Resulted Blood Line NO GROWTH IN 3 DAYS Result Diagram: 11/20/16 0600 11/20/16 0606 Assessment & Plan Problem List: (1) Lower extremity cellulitis Assessment and Plan Patient's condition was discussed, his options of treatment was discussed. Evaluated with daughter present. The option of I & D is a consideration, but at this time it does not appear to be a deep infection. Patient is asymptomatic and labs are normal. Reviewed x-rays in detail with patient, which demonstrate no osteoarthritis present. Suprapatellar effusion noted. We are hopeful that as his knee/thigh symptoms improves, his ROM will improve. Continue with conservative care. Continue course of antibiotic per ID. Orthopedically stable for discharge. Patient states he will f/u with surgeon in [place]. Patient's case discussed with Dr. Hannon over the phone in front of the patient. Mykel Selby November 20, 2016 19:48
[2016-11-20 20:00] VITALS: BP 148/68; PULSE 59; RESP 20; TEMP 96.7; O2SAT 97
[2016-11-20] MEDS ORDERED: DOXY100C PO (20:09)
--- NOTE | 2016-11-20 20:11 | HHI.DS ---
Discharge Summary Admission Date November 17, 2016 at 22:15 Discharge Date: November 20, 2016 Admitting Diagnosis cellulitis left lower extremity (1) Lower extremity cellulitis ICD Code: L03.119 (2) Failure of outpatient treatment ICD Code: Z78.9 (3) Sarcoma ICD Code: C49.9 (4) Renal insufficiency ICD Code: N28.9 (5) HTN (hypertension) ICD Code: I10 (6) Tobacco abuse ICD Code: Z72.0 Procedures None. Brief History - From Admission This is a 71-year-old male with a PMH of HTN, Aortic Stenosis and Left Leg Sarcoma s/p Resection who presented to the ER w/ complaints of progressive redness at surgical site. States he underwent Left Leg Sarcoma Resection on by Dr. Berry in [place], had been doing well post-operatively until approx 1wk ago when he noted redness and mild purulent drainage from surgical site. Seen by PCP who contacted surgeon in [place] and started on Bactrim x4 days w/ no improvement. On arrival, BP 193/84, HR 89, O2 sat 98% on RA, Afebrile. CBC essentially unremarkable. Creatinine 1.65, previously 1.13 on 07/25/16. Knee X-ray with suprapatellar effusion, no acute findings. Femur X -ray with no acute findings. S/p Blood Cultures and IV Vanc in ER. CBC/BMP: 11/20/16 0600 11/20/16 0606 Significant Findings Laboratory Tests Test 11/17/16 11/18/16 11/19/16 11/20/16 21:00 07:59 07:06 06:00 Red Blood Count 4.22 MIL/MM3 4.08 MIL/MM3 4.13 MIL/MM3 (4.50-5.90) (4.50-5.90) (4.50-5.90) Monocytes (%) (Auto) 18.7 % 20.2 % 17.2 % 12.6 % (0.0-8.0) (0.0-8.0) (0.0-8.0) (0.0-8.0) Eosinophils (%) (Auto) 7.6 % (0.0-4.0) 9.0 % (0.0-4.0) 7.0 % (0.0-4.0) 6.8 % ( 0.0-4.0) Blood Urea Nitrogen 28 MG/DL (7-18) 20 MG/DL (7-18) Creatinine 1.65 MG/DL (0.60-1.30) Estimat Glomerular Filtration 41 ML/MIN (>89) 57 ML/MIN (>89) 67 ML/MIN (>89) Rate White Blood Count 3.6 TH/MM3 3.9 TH/MM3 (4.0-11.0) (4.0-11.0) Hemoglobin 12.8 GM/DL (13.0-17.0) Hematocrit 38.3 % 38.7 % (39.0-51.0) (39.0-51.0) Platelet Count 149 TH/MM3 139 TH/MM3 (150-450) (150-450) Neutrophils # (Auto) 1.6 TH/MM3 (1.8-7.7) Lymphocytes # (Auto) 0.9 TH/MM3 (1.0-4.8) Chloride Level 108 MEQ/L 109 MEQ/L (98-107) (98-107) Calcium Level 8.2 MG/DL 8.4 MG/DL (8.5-10.1) (8.5-10.1) Albumin 3.3 GM/DL (3.4-5.0) Test 11/20/16 06:06 Estimat Glomerular Filtration 64 ML/MIN (>89) Rate PE at Discharge GENERAL: AOX3. NAD. SKIN: Warm and dry. HEAD: Normocephalic. EYES: No scleral icterus. No injection or drainage. NECK: Supple, trachea midline. No JVD or lymphadenopathy. CARDIOVASCULAR: Regular rate and rhythm without murmurs, gallops, or rubs. RESPIRATORY: Breath sounds equal bilaterally. No accessory muscle use. GASTROINTESTINAL: Abdomen soft, non-tender, nondistended. MUSCULOSKELETAL: No cyanosis, or edema. Left lower thigh, lateral aspect s/p sarcoma surgery, mild erythema. Pain on left knee movement. BACK: Nontender without obvious deformity. No CVA tenderness. Pt update on day of discharge Patient is doing well. Orthopedic surgery evaluated for left knee pain. Recommended conservative management. Cleared for discharge. Hospital Course This is a 71-year-old male with a PMH of HTN, Aortic Stenosis and Left Leg Sarcoma s/p Resection who presented to the ER w/ complaints of progressive redness at surgical site. States he underwent Left Leg Sarcoma Resection on by Dr. Berry in [place], had been doing well post-operatively until approx 1wk ago when he noted redness and mild purulent drainage from surgical site. Seen by PCP who contacted surgeon in [place] and started on Bactrim x4 days w/ no improvement. - Left Thigh Cellulitis: surgical site w/ surrounding erythema. Knee X-ray w/ suprapatellar effusion, Femur X-ray with no acute bony abnormality. Blood cultures negative x 2 days. - Continue vancomycin. ID following. - Failed outpatient treatment with Bactrim x4 days w/ no improvement, will continue w/ IV Abx - ID recommended Doxycycline for 7 days on discharge. - Left knee pain - Orthopedic surgery evaluated patient and recommended non-surgical management. - Continue [place] PRN for pain. - Sarcoma: H/o Left Thigh Sarcoma s/p resection 10/03/[address] Berry in [place], has upcoming appt for outpatient follow up. - Acute kidney injury - Improved. Creatinine 1.65 --> 1.13. HTN: well controlled on Ramipril Tobacco Abuse: Pt counselled on the need to quit. NicoDerm prn if needed. Constipation: Laxatives/stool softeners as needed, milk of mag now. Pt Condition on Discharge: Good Discharge Disposition: Discharge Home Discharge Time: > 30 minutes Discharge Instructions DIET: Follow Instructions for: As Tolerated, No Restrictions Activities you can perform: Regular-No Restrictions New Medications: Doxycycline Hyclate (Doxycycline Hyclate) 100 Mg Cap 100 MG PO BID Infection #14 Ref 0 CAP Continued Medications: Ramipril (Ramipril) 10 Mg Cap 10 MG PO DAILY #30 Ref 0 CAP Simvastatin (Simvastatin) 10 Mg Tab 10 MG PO DAILY Cholesterol Management #30 Ref 0 TAB Faustina Mai DO November 20, 2016 20:11
[2016-11-21] MEDS ORDERED: PHARMACY ORDERED LAB ONE (02:45)
== END 2016-11-20 21:02 | disposition home or self-care (01) | DRG 863 ==
LOC: NEPC 19:58 → NEDA 22:15 → N05B 23:56
PROVIDERS: ADMIT Hospitalist; ATTEND Hospitalist
DX: T81.4XXA Infection following a procedure, initial encounter (principal); C49.9 Malignant neoplasm of connective and soft tissue, unspecified; L03.116 Cellulitis of left lower limb; N28.9 Disorder of kidney and ureter, unspecified; I10 Essential (primary) hypertension; I35.0 Nonrheumatic aortic (valve) stenosis; F17.210 Nicotine dependence, cigarettes, uncomplicated; Z71.6 Tobacco abuse counseling; Z92.3 Personal history of irradiation; Z98.1 Arthrodesis status; K59.00 Constipation, unspecified
CPT/HCPCS: 73552; 73560; 80048; 80053; 85025; 85652; 86140; 87040; 87070; 87205; 96374; J1650; J3370; J7030; J7050

== ENCOUNTER 2017-02-02 07:35 | Day surgery (SDC) | payer MEDICARE, BC ==
[~2017-02-02] VITALS: Ht 174 cm; Wt 64.8 kg
[~2017-02-02 07:35] MED LIST changes: +ATOR20TA15 PO; +DOXY100C PO
[2017-02-02 08:28] VITALS: BP 158/83; PULSE 66; RESP 18; TEMP 98.1; O2SAT 97
[2017-02-02 08:46] LABS: AUTOMATED NEUTROPHIL # 2.7 TH/MM3 (1.8-7.7); BASOPHIL # 0.1 TH/MM3 (0-0.2); BASOPHIL % 1.5 % (0.0-2.0); EOSINOPHIL # 0.3 TH/MM3 (0-0.4); EOSINOPHIL % 5.4 % (0.0-4.0); HEMATOCRIT 46.6 % (39.0-51.0); HEMO FLAGS DIFF FINAL; LYMPH % 29.9 % (9.0-44.0); LYMPHOCYTE # 1.6 TH/MM3 (1.0-4.8); MEAN CELL VOLUME 93.7 FL (80.0-100.0); MEAN CORPUSCULAR HEMOGLOBIN 31.7 PG (27.0-34.0); MEAN CORPUSCULAR HGB CONC 33.8 % (32.0-36.0); MONO % 12.7 % (0.0-8.0); NEUT % 50.5 % (16.0-70.0); PLATELET COUNT 151 TH/MM3 (150-450); RED BLOOD COUNT 4.97 MIL/MM3 (4.50-5.90); RED CELL DISTRIBUTION WIDTH 13.4 % (11.6-17.2); WHITE BLOOD COUNT 5.4 TH/MM3 (4.0-11.0)
[2017-02-02 08:52] LABS: APTT (PATIENT) 28.8 SEC (24.3-30.1); PROTHROMBIN TIME - PATIENT 11.2 SEC (9.8-11.6)
[2017-02-02 09:03] LABS: BICARBONATE 25.4 MEQ/L (21.0-32.0); POTASSIUM 4.1 MEQ/L (3.5-5.1)
[2017-02-02] MEDS ORDERED: MIDAZOLAM HCL 2 MG/2 ML VIAL ONE (09:56)
[2017-02-02] MEDS ORDERED: HEPARIN-NS/PF INJ 500 ML ONE (09:56)
[2017-02-02] MEDS ORDERED: HEPARIN SODIUM - IV 10,000 UNITS/10 ML VIAL ONE (10:03)
--- NOTE | 2017-02-02 11:08 | CATHPROC ---
[employer] HIS Report Study Information Study Number Admission Scheduled Start Study Start [id number] Feb 02 2017 7:35AM 02/02/2017 Feb 02 2017 9:56AM [employer] [place] [facility] Cardiac Catheterization Admit Source Facility Department Other [facility] - Developer [employer] Mechanical Physician and Clinical Staff Initial MD Davalos, Matthew Statistician Applied Arabella Spears BSRN Other cathlab, cathlab Other Molly Jaramillo,KIA Recorder Chaparrita Ac,RT(R) Scrub Jerilyn Meraz,NATHALIE TECH2 Procedures Performed Procedure Location (Site) Vessel Name Coronary Angiograms LCA Left Coronary Coronary Angiograms RCA Right Coronary Equipment Time Sports Instructor Description Size Mfg Part Number Used/Scraped TRANSDUCER, TRUWAVE [id number] 10:03 JORGENSEN FOLEY * Used W/STOCKCOCK *[id number] 10:39 [employer] MEDICAL VASCADE, FR5 CLOSURE SYSTEM FR 5 Used *[id number]- INTRODUCER SET, 10:03 [employer] FR 5 SC-NT-U-SST Used MICROPUNCTURE, STIFFENED *[id number] [id number] *[id number] [id number] *[id number] 10:03 [employer] PACK, CCL CUSTOM * Used *[id number] 10:03 [employer] WIRE, 3MMJ .035 180CM 180CM Used *[id number] 10:03 NAMIC MANIFOLD, 4 PORT * Used *[id number] 10:03 [employer]COMED OMNIPAQUE, 350 MG, 150ML 150ML [id number] Used [id number] 10:03 [facility] BLANKET,WARM AIR CCL * Used *[id number] 10:03 [employer]UMO MEDICAL SHEATH, FR5 TERUMO (10CM) FR 5 Used *[id number] History: Current Medications Medication Dosage/Unit Route Frequency Last Date/Time Taken Statins (any) History: Allergies Allergy Reaction Cephalosporins Keflex Penicillin History: Risk Factors Family History of Hypertension Dyslipidemia Previous OK Previous Heart Failure Premature CAD Yes Yes No No No Prior Valve Prior PCI Prior CABG Surgery No No No Cerebrovascular Peripheral Artery Chronic Lung On Dialysis Diabetes Disease Disease Disease No No Yes No No History: Stress Tests Stress or Imaging Studies Performed No History: Other Disease Selection Items HTN History: Other Current Smoker Method Packs a Day Years Used Pack Years Yes Cigarettes 3 50 150 Labs Hgb (g/dl) Hct (%) WBC (l/cumm) Platelets (thousands) 11.60-17.00 35.00-51.00 4.00-11.00 150.00-450.00 15.8 46.6 5.4 151 Glucose (mg/dl) BUN (mg/dl) Creatinine (mg/dl) BUN:Creatinine (1:x) 74.00-106.00 7.00-18.00 0.50-1.30 10.00-20.00 93 19 1.1 17.3 Na (meq/l) K (meq/l) 136.00-145.00 3.50-5.10 138 4.1 INR (PTT:PT) 0.90-1.10 1 CPK-MB (ng/ML) 0.50-3.60 Not Drawn Medication Medication Total Dose (Bolus/Oral) Medication Total Dosage/Unit 1% XYLOCAINE 20 mL FENTANYL 50 mcg VERSED 2 mg Medications (Bolus/Oral) Medication Time Given Dosage/Unit Administered By Reason FENTANYL 02/02/2017 10:27:43 AM 50 mcg Molly Jaramillo Patient arrived on 50 mcg FENTANYL given by Molly Jaramillo, KIA via Peripheral IV. Ordered by Matthew Mar. 1% XYLOCAINE 02/02/2017 10:28:38 AM 20 mL Matthew Davalos Patient arrived on 20 mL 1% XYLOCAINE given by Matthew Davalos in Right Groin via Subcutaneous. Ord ered by Matthew Davalos. VERSED 02/02/2017 10:28:40 AM 2 mg Molly Jaramillo Patient arrived on 2 mg VERSED given by Molly Jaramillo, RN via Peripheral IV. Ordered by Matthew Davalos. Medication (Drip) Medication Time Given Dosage/Unit Concentration/Unit Diluent (ml) Solutio n IV Solutions 02/02/2017 9:58:43 AM 0 mL (IV) 500 NaCl .9 Patient arrived on IV Solutions given by sumit arana in Left Antecubital via Peripheral IV. Pump /Drip Flow = 20 ml/hr using NaCl .9. Ordered by Matthew Davalos. Initial Case Assessment Respiration - General Respiration Rate SpO2 (%) (B/min) 18 100 Chronological Log Time Study Chronological Log 9:50:54 Patient arrived via Bed. 9:51:00 Patient Name, D.O.B, / Armband Verified By R.N. 9:56:12 Pre-op and post- op instructions given; patient acknowledges understanding of instructions . 9:56:23 Patient has been NPO for More than 6Hrs. 9:56:23 Skin Breakdown-non per patient 9:56:24 Patient Warmer Placed on the Table. 9:56:26 Jani Prominences Protected 9:58:42 A # 20 IV was noted in the Antecubital (left). Grade = 0 Patient arrived on IV Solutions given by cathlab, cathlab in Left Antecubital via Peripheral IV. Pump/Drip Flow = 20 9:58:43 ml/hr using NaCl .9. Ordered by Matthew Davalos. 9:58:44 History and physical on the chart or being dictated. Assessment: Initial Case 9:58:58 Respiration: Resp=18 B/min, RnZ2=785 % Vitals capture started with the following parameters, Patient=Adult, Interval=5 min, Initial Pr pkzdez=325 mmHg, 9:59:01 Deflation Rate=5 mmHg, Cuff placed on Right Arm 9:59:36 HR=50 bpm, CWZM=911/69 mmhg, KaS7=339.0 %, Resp=15 B/min, Pain=0, Mert=10, Larson=2 10:00:05 Reference ECG taken 10:04:39 HR=51 bpm, VUSQ=935/66 mmhg, JdM2=182.0 %, Resp=11 B/min, Pain=0, Mert=10, Larson=2 10:09:43 HR=50 bpm, VMNQ=283/67 mmhg, PaS8=827.0 %, Resp=15 B/min, Pain=0, Mert=10, Larson=2 10:10:18 Pressure channel 1 zeroed. 10:14:38 HR=45 bpm, HRYE=578/83 mmhg, HeG5=500.0 %, Resp=8 B/min, Pain=0, Mert=10, Larson=2 10:20:24 HR=49 bpm, HKIL=324/64 mmhg, ClO6=961.0 %, Resp=16 B/min, Pain=0, Mert=10, Larson=2 10:24:40 HR=48 bpm, PRRT=680/65 mmhg, CmJ7=210.0 %, Resp=14 B/min, Pain=0, Mert=10, Larson=2 10:27:23 MD arrived. Time Out. Correct patient, correct procedure,correct physician, ,power injector not loaded with contrast with surgical 10:27:26 team present. Time Out Concurred by MD, individual staff and CREATIVE RECRUITER in procedure 10::39 Case Start 10::42 Verbal Stimulation=2 Physical Stimulation=2 Airway=2 Respiration=2 TOTAL=9. (0=absent, 1=li mited, 2=present) 10::43 Patient arrived on 50 mcg FENTANYL given by Molly Jaramillo RN via Peripheral IV. Ordered by Matthew Davalos. Patient arrived on 20 mL 1% XYLOCAINE given by Matthew Davalos in Right Groin via Subcutaneou s. Ordered by 10:28:38 Matthew Davalos. 10::40 Patient arrived on 2 mg VERSED given by Molly Jaramillo RN via Peripheral IV. Ordered by Matthew Lazo. 10:29:41 HR=53 bpm, DDTI=814/66 mmhg, CtD4=952.0 %, Resp=9 B/min, Pain=0, Mert=10, Larson=2 10:31:21 Access site was Right Femoral Artery. A INTRODUCER SET, MICROPUNCTURE, STIFFENED FR 5 was advanced into the Fem Art (right) using the Modified ::28 Seldinger technique. 10:31:40 An injection in the Groin (right) was made through the SHEATH, FR5 TERUMO (10CM) FR 5. A SHEATH, FR5 TERUMO (10CM) FR 5 was exchanged in the Fem Art (right). This was necessary in or tr to 10:32:18 accomodate a larger catheter. A JL 4.0 INFINITI CATHETER FR 5 was advanced over a wire. OMNIPAQUE, 350 MG, 150ML 150ML was us ed for 10:32:50 injections. 10:33:04 The LCA was injected and visualized at various angles. OMNIPAQUE, 350 MG, 150ML 150ML used . Recorded Pressure: Ao, HR=59, Condition=Condition 1 10:33:13 (Aorta) Ao 119/51/74 10:34:34 Catheter was removed A JR 4.0 INFINITI CATHETER FR 5 was advanced over a wire. OMNIPAQUE, 350 MG, 150ML 150ML was us ed for 10:34:41 injections. 10:35:19 HR=67 bpm, ENGZ=240/89 mmhg, FcC4=908.0 %, Resp=12 B/min, Pain=0, Mert=10, Larson=2 10:36:33 The RCA was injected and visualized at various angles. OMNIPAQUE, 350 MG, 150ML 150ML used . 10:36:50 Catheter was removed 10:39:01 VASCADE, FR5 CLOSURE SYSTEM FR 5 placement in the Fem Art (right) 10:40:34 HR=58 bpm, GGVD=651/70 mmhg, LnV2=422.0 %, Resp=12 B/min, Pain=0, Mert=10, Larson=2 10:40:42 Case End 10:40:48 Sterile dressing applied to site 10:40:49 No case complications noted. 10:41:04 Bedside Report will be given. 10:41:10 Patient moved to stretcher 10:44:44 HR=57 bpm, PRSF=447/68 mmhg, SpO2=99.0 %, Resp=10 B/min, Pain=0, Mert=10, Larson=2 10:49:51 Vitals capture stopped. End Study - Contrast Media Used In Study Contrast Total Opened (mL) Total Used (mL) Total Wasted (mL) Omnipaque 60 60 0 End Study - Maximum Contrast Load Max Contrast Load (mL) 294.6 End Study - Radiation Exposure Fluoro Time (minutes) 3.4 End Study - Sheaths Sheaths Pulled By Sheath Hold Time (min) Matthew Davalos End Study - Patient Disposition Complications Transferred To No Outpatient Bed
[2017-02-02] MEDS ORDERED: IOHEXOL 350 MG/ML 100 ML BTL (for Cath Lab) OTHER ONE (11:59)
[2017-02-02 13:17] LABS: BLOOD, URINE NEG (NEG); COMMENT (UR) CULT NOT INDICATED; CULTURE IF INDICATED CULT NOT INDICATED; GLUCOSE,URINE NEG (NEG); KETONE, URINE NEG (NEG); MUCUS URINE FEW /lpf (OCC); NITRITE,URINE NEG (NEG); URINE COLOR YELLOW (YELLW/STRAW)
--- NOTE | 2017-02-02 13:27 | MA ---
cc: FREDYDEVINJULIO DATE: 02/02/2017 DATE OF : 1945 PROCEDURE PERFORMED 1. Left heart catheterization. 2. Selective right and left coronary angiography. 3. Selective right common femoral artery angiography. INDICATIONS Severe symptomatic aortic stenosis, NYHA II Sx. Preoperative evaluation. DESCRIPTION OF PROCEDURE Consent signed. The patient was brought into the cardiac laborer poultry hatchery in fasting state. The right groin was prepped and draped in sterile fashion using 1% lidocaine for local anesthesia and a micropuncture kit a 5-Monegasque sheath was inserted into the right common femoral artery, the right common femoral artery angiography was performed to confirm position of the sheath. Selective right and left coronary angiography was performed. With a JR-4 and JL-4 diagnostic catheter. Angiography was taken in multiple views. Aortic valve was not crossed because there is documented severe aortic stenosis on 2-D echocardiogram as well as preserved ejection fraction. The patient tolerated the procedure well without complications. Estimated blood loss less than 30 cc. Total contrast used 65 cc. The right groin access site was closed with a basket closure device. RESULTS Aortic pressure the aortic pressure was 190/51 with a mean of 74. ANGIOGRAPHY: 1. The right coronary artery is a dominant vessel is giving off the PDA and PLB branch. The right coronary artery has nonobstructive coronary artery disease as well as the PDA and the PLB branches. 2. Left main is patent with ELISABETH III flow and short. 3. The left anterior descending is a transapical vessel giving off three diagonal vessels which are patent with nonobstructive coronary artery disease. The rest of the LAD is patent with ELISABETH III flow and nonobstructive coronary artery disease. 4. The left circumflex artery is a small, it is mainly composed of one OM branch which is patent with ELISABETH III flow and small AV groove segment of circ. CONCLUSION 1. Nonobstructive coronary artery disease. 2. Severe symptomatic aortic stenosis with preserved ejection fraction. 3. PAD. RECOMMENDATIONS: The patient will be consulted to see surgery, Dr. Gayle. His STS score ~3, Frailty is 2/4. He has a history of poor surgical wound healing as well as a recent sarcoma off the leg status post radiation and chemo and radiation. Continue TAVR vs. AVR work up. He will undergo workup with a CTA, PFTs and CT surgery evaluation today. MD JONATHAN Galarza/warren /10:48 AM /1:08 PM [facility]
[2017-02-02] MEDS ORDERED: IOHEXOL 350 MG/ML 10 ML VIAL (for RAD DIAG) IV ONE (14:25)
--- NOTE | 2017-02-02 14:55 | PD.CONS ---
History of Present Illness Service CT Surgery Consult Requested By Dr. Ruiz Reason for Consult Severe symptomatic aortic stenosis, dyspnea Primary Care Physician Kane Segura M.D. Diagnoses: (1) Diastolic CHF due to valvular disease (2) Aortic stenosis History of Present Illness 71 y/o male with h/o COPD, severe peripheral vascular disease, and recent sarcoma excision left leg presents with exertional fatigue, dyspnea and lightheadedness. He was found to have severe aortic stenosis on echocardiogram. He underwent left heart cath today which shows no significant coronary stenoses. He is being considered for AVR. He denies PND or orthopnea. He denies palpitations or chest pain. Review of Systems Constitutional: COMPLAINS OF: Fatigue, DENIES: Diaphoretic episodes, Fever, Weight gain, Weight loss, Chills, Dizziness, Change in appetite, Night Sweats Endocrine: DENIES: Heat/cold intolerance, Polydipsia, Polyuria, Polyphagia Eyes: DENIES: Blurred vision, Diplopia, Eye inflammation, Eye pain, Vision loss , Photosensitivity, Double Vision Ears, nose, mouth, throat: DENIES: Tinnitus, Hearing loss, Vertigo, Nasal discharge, Oral lesions, Throat pain, Hoarseness, Ear Pain, Running Nose, Epistaxis, Sinus Pain, Toothache, Odynophagia Respiratory: COMPLAINS OF: Shortness of breath, DENIES: Apneas, Cough, Snoring , Wheezing, Hemoptysis, Sputum production Cardiovascular: COMPLAINS OF: Dyspnea on Exertion, DENIES: Chest pain, Palpitations, Syncope, PND, Lower Extremity Edema, Orthopnea, Claudication Gastrointestinal: DENIES: Abdominal pain, Black stools, Bloody stools, Constipation, Diarrhea, Nausea, Vomiting, Difficulty Swallowing, Anorexia Genitourinary: DENIES: Sexual dysfunction, Urinary frequency, Urinary incontinence, Urgency, Hematuria, Dysuria, Nocturia, Penile Discharge, Testicular Pain, Testicular Swelling Musculoskeletal: COMPLAINS OF: Joint pain, Stiffness, DENIES: Muscle aches, Joint Swelling, Back pain, Neck pain Integumentary: DENIES: Abnormal pigmentation, Nail changes, Pruritus, Rash Hematologic/lymphatic: DENIES: Bruising, Lymphadenopathy Immunologic/allergic: DENIES: Eczema, Urticaria Neurologic: DENIES: Abnormal gait, Headache, Localized weakness, Paresthesias, Seizures, Speech Problems, Tremor, Poor Balance Psychiatric: DENIES: Anxiety, Confusion, Mood changes, Depression, Hallucinations, Agitation, Suicidal Ideation, Homicidal Ideation, Delusions Past Family Social History Allergies: Coded Allergies: Cephalosporins (Verified Allergy, Severe, 01/26/17) Keflex (Verified Allergy, Severe, 01/26/17) Penicillin (Verified Allergy, Severe, 01/26/17) Past Medical History AAA CVD s/p R CEA by Dr. Nuñez hyperlipidemia ongoing tobacco abuse HTN PAD Sarcoma Past Surgical History Angioplasty - both legs Elbow procedure Rotator cuff surgery Bilat inguinal hernia repairs Septoplasty Spinal fusion Thumb surgery Reported Medications Lipitor Ramipril Family History Unremarkable Social History 1-2ppd x 50 yrs Denies ETOH Retired from [employer] Physical Exam Vital Signs Vital Signs Date Time Temp Pulse Resp B/P Pulse Ox O2 Delivery O2 Flow Rate FiO2 02/02/17 10:58 97 Room Air 02/02/17 08:28 98.1 66 18 158/83 97 Physical Exam GENERAL: This is a well-nourished, well-developed patient, in no apparent distress. SKIN: No rashes, ecchymoses or lesions. Cool and dry. HEAD: Atraumatic. Normocephalic. No temporal or scalp tenderness. EYES: Pupils equal round and reactive. Extraocular motions intact. No scleral icterus. No injection or drainage. ENT: Nose without bleeding, purulent drainage or septal hematoma. Throat without erythema, tonsillar hypertrophy or exudate. Uvula midline. Airway patent. NECK: Trachea midline. No JVD or lymphadenopathy. Supple, nontender, no meningeal signs. CARDIOVASCULAR: Regular rate and rhythm with 3/6 SHENG at the RUSB. RESPIRATORY: Clear to auscultation. Breath sounds equal bilaterally. No wheezes , rales, or rhonchi. GASTROINTESTINAL: Abdomen soft, non-tender, nondistended. No hepato-splenomegaly , or palpable masses. No guarding. MUSCULOSKELETAL: Extremities without clubbing, cyanosis, or edema. No joint tenderness, effusion, or edema noted. No calf tenderness. Patient has an open wound on the left thigh associated with sarcoma resection and postop infection.. NEUROLOGICAL: Awake and alert. Cranial nerves II through XII intact. Motor and sensory grossly within normal limits. Five out of 5 muscle strength in all muscle groups. Normal speech. Laboratory Laboratory Tests Test 02/02/17 02/02/17 02/02/17 08:10 08:15 12:53 Blood Type O POSITIVE O POSITIVE White Blood Count 5.4 Red Blood Count 4.97 Hemoglobin 15.8 Hematocrit 46.6 Mean Corpuscular Volume 93.7 Mean Corpuscular Hemoglobin 31.7 Mean Corpuscular Hemoglobin 33.8 Concent Red Cell Distribution Width 13.4 Platelet Count 151 Mean Platelet Volume 8.5 Neutrophils (%) (Auto) 50.5 Lymphocytes (%) (Auto) 29.9 Monocytes (%) (Auto) 12.7 Eosinophils (%) (Auto) 5.4 Basophils (%) (Auto) 1.5 Neutrophils # (Auto) 2.7 Lymphocytes # (Auto) 1.6 Monocytes # (Auto) 0.7 Eosinophils # (Auto) 0.3 Basophils # (Auto) 0.1 CBC Comment DIFF FINAL Differential Comment Prothrombin Time 11.2 Prothromb Time International 1.0 Ratio Activated Partial 28.8 Thromboplast Time Sodium Level 138 Potassium Level 4.1 Chloride Level 105 Carbon Dioxide Level 25.4 Anion Gap 8 Blood Urea Nitrogen 19 Creatinine 1.17 Estimat Glomerular Filtration 61 Rate Random Glucose 93 Calcium Level 9.3 Albumin 4.1 Antibody Screen NEGATIVE Urine Color YELLOW Urine Turbidity CLEAR Urine pH 6.0 Urine Specific [place] 1.014 Urine Protein NEG Urine Glucose (UA) NEG Urine Ketones NEG Urine Occult Blood NEG Urine Nitrite NEG Urine Bilirubin NEG Urine Urobilinogen LESS THAN 2.0 Urine Leukocyte Esterase NEG Urine RBC 1 Urine WBC LESS THAN 1 Urine Mucus FEW Microscopic Urinalysis Comment CULT NOT INDICATED Date/Time Procedure Status Source Growth 02/02/17 11:54 MRSA Surveillance Culture Received Other Pending Result Diagram: 02/02/1781402/02/1715 Course Stable s/p left heart cath Assessment and Plan Problem List: (1) Diastolic CHF due to valvular disease Status: Acute (2) Aortic stenosis Status: Acute (3) Lower extremity cellulitis Status: Acute (4) Tobacco abuse Status: Acute Assessment and Plan 71y/o male with severe symptomatic aortic stenosis and several comorbidities including COPD, PAD, and 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 He is followed at [facility] for this issue, but the wound is not completely healed. He also is somewhat frail and needs help with his ADLs. His son helps him when able. His STS risk follows [employer] About the STS Risk Calculator Procedure: AV Replacement Risk of Mortality: 3.109% Morbidity or Mortality: 21.136% Long Length of Stay: 8.074% Short Length of Stay: 28.485% Permanent Stroke: 1.875% Prolonged Ventilation: 11.632% DSW Infection: 0.399% Renal Failure: 4.769% Reoperation: 11.149% There is increased incremental risk based on his functional status and recent sarcoma. Based on his presentation and findings, his risk for surgical AVR in intermediate. I discussed this with him as well as the open AVR vs TAVR approaches. He would prefer TAVR. Risks and benefits were discussed and he agrees to proceed. He will see Dr. Cochran on 02/13/17 to complete his evaluation and be followed by the structural heart team. Problem Qualifiers (1) Aortic stenosis: Qualified Code: I35.0 - Aortic valve stenosis, unspecified etiology Mary Gayle MD Feb 02, 2017 14:55
--- NOTE | 2017-02-02 16:53 | RADRPT ---
EXAM DATE/TIME: 02/02/2017 14:04 [place] COMPARISON: No previous studies available for comparison. INDICATIONS : Evaluate for transcatheter aortic valve replacement. IV CONTRAST: 95 cc Omnipaque 350 (iohexol) IV RADIATION DOSE: 8.52 CTDIvol (mGy) MEDICAL HISTORY : Hypertension. Cardiovascular disease SURGICAL HISTORY : None. ENCOUNTER: Initial ACUITY: 1 day PAIN SCALE: 0/10 LOCATION: chest TECHNIQUE: Volumetric scanning was performed using a multi-row detector CT scanner. The data was post processed with a variety of visualization algorithms including full volume maximum intensity projection, multi -planar sliding thin slab reformation, curved planar reformation, and surface rendering techniques. Using automated exposure control and adjustment of the mA and/or kV according to patient size, radiat ion dose was kept as low as reasonably achievable to obtain optimal diagnostic quality images. DIC OM format image data is available electronically for review and comparison. FINDINGS: Aortic Root and valve: Densely calcified aortic valve is evident with 3 separate sinuses. Thoracic Aorta; There is no aneurysmal dilatation of the MARIYA and the lower descending thoracic aorta. Moderate calcification is present at the origin of the innominate and left subclavian without signi ficant stenosis. Abdominal Aorta: Moderate calcification is present in the abdominal aorta without aneurysmal dilatation. There is 70% stenosis of the mid left renal artery with minimal poststenotic dilatation. There is the 50% stenos is of the densely calcified left renal artery. Right Iliac: Multiple focal stenoses are present in the mid right common iliac and and external iliac, hemodynamic ally significant. Left Iliac: Extensive atherosclerotic stenoses are present in the common iliac and mid external iliac. Source data: There are no suspicious lung lesions identified. The liver, spleen, pancreas and kidneys are unremar kable. There is no adenopathy Extensive degenerative changes are present in the lumbar spine with sclerotic changes, nonspecif ic in the left ilium. CONCLUSION: Findings as described above. Percutaneous access from the transfemoral approach is m arginal. Tanmay Cabrera MD FACR on February 02, 2017 at 16:25 Board Certified Radiologist. This report was verified electronically.
--- NOTE | 2017-02-03 19:28 | EKG ---
Date Performed: 02/02/2017 Time Performed: 08:42:38 PTAGE: 71 years EKG: Sinus bradycardia with aberrantly conducted supraventricular complexes rSr'(V1) - probable normal variant Septal T wave changes are nonspecific Borderline ECG Compared to PREVIOUS TRACING , PACs are new. PREVIOUS TRACIN12/02/2008 20.37 DOCTOR: Kvng Cain Interpretating Date/Time 02/03/2017 19:26:53
--- NOTE | 2017-02-05 10:12 | RSPPFT ---
DATE OF PROCEDURE: 02/02/17 COMMENTS: Spirometry with FVC of 2.5, FEV1 of 1.5, FEV1/FVC ratio at 59%. A positive and significant response to acutely inhaled bronchodilator noted. IMPRESSION: 1. Moderately severe airways obstruction. 2. Positive response to acutely inhaled bronchodilator.
== END 2017-02-02 15:45 | disposition home or self-care (01) ==
LOC: HDIC 07:35 → HCAT 07:35
PROVIDERS: ATTEND Radiology Vascular & Interventional Radiology
DX: I35.0 Nonrheumatic aortic (valve) stenosis (principal); I25.10 Atherosclerotic heart disease of native coronary artery without angina pectoris; I11.0 Hypertensive heart disease with heart failure; I50.30 Unspecified diastolic (congestive) heart failure; L03.116 Cellulitis of left lower limb; I73.9 Peripheral vascular disease, unspecified; J44.9 Chronic obstructive pulmonary disease, unspecified; R42 Dizziness and giddiness; E78.5 Hyperlipidemia, unspecified; I71.4 Abdominal aortic aneurysm, without rupture; Z01.818 Encounter for other preprocedural examination
CPT/HCPCS: 74174; 80048; 81001; 82040; 85025; 85610; 85730; 86850; 86900; 86901; 87641; 93005; 93454; 94010; C1760; C1769; C1893; G0269; J1644; J2250; J3010; Q9967; 87081

== ENCOUNTER → 2017-02-23 | Outpatient (CLI) | payer MEDICARE, BC ==
[~2017-02-23] MED LIST changes: +ASPI81CH25 PO; -DOXY100C PO; +METO25TA3 PO; +PLAV75TA29 PO
--- NOTE | 2017-02-26 10:37 | ECHRPT ---
Indication: CONCLUSIONS Normal left ventricular size. Wall thickness is normal. The left ventricular systolic function is low normal with an estimated ejection fraction in the rang e of 50- 55%. No regional wall motion abnormalities are present. Doppler parameters are consistent with a pseudonormal left ventricular filling pattern with concomin ant abnormal relaxation and increased filling pressure (grade 2 diastolic dysfunction). The right ventricular size is normal. The left atrial size is zfku-zw-takcyqbxyq dilated. The right atrial size is bvbs-rr-ynqrkmfkxx dilated. The interatrial septum not well visualized. Moderate thickening of the mitral valve leaflets. The mitral valve flattens with out significant prolapse. Mild mitral valve regurgitation. AV velocity ratio <0.25 consistent with Severe aortic stenosis Trace aortic valve regurgitation. There is mild tricuspid valve regurgitation. Normal estimated pulmonary pressures. The pulmonary valve is not well visualized. The inferior vena cava (IVC) is normal in size. There is greater than 50% respiratory change in dimension of the inferior vena cava (normal). BP: / HR: Rhythm: Sinus MEASUREMENTS (Male / Female) Normal Values Technical Quality:Technically difficult study 2D ECHO LV Diastolic Diameter PLAX 4.1 cm 4.2 - 5.9 / 3.9 - 5.3 cm LV Systolic Diameter PLAX 3.2 cm IVS Diastolic Thickness 0.9 cm 0.6 - 1.0 / 0.6 - 0.9 cm LVPW Diastolic Thickness 0.9 cm 0.6 - 1.0 / 0.6 - 0.9 cm LV Relative Wall Thickness 0.4 LVOT Diameter 1.8 cm Aortic Root Diameter 2.6 cm LA Systolic Diameter LX 2.9 cm 3.0 - 4.0 / 2.7 - 3.8 cm DOPPLER AV Peak Velocity 392.0 cm/s AV Peak Gradient 61.5 mmHg AV Mean Gradient 39.0 mmHg AV Velocity Time Integral 116.0 cm LVOT Peak Velocity 50.4 cm/s LVOT Peak Gradient 1.0 mmHg LVOT Velocity Time Integral 14.9 cm AV Area Cont Eq vti 0.3 cm AV Area Cont Eq pk 0.3 cm Mitral E Point Velocity 73.1 cm/s Mitral A Point Velocity 69.1 cm/s Mitral E to A Ratio 1.1 PV Peak Velocity 51.1 cm/s PV Peak Gradient 1.0 mmHg FINDINGS LEFT VENTRICLE Normal left ventricular size. Wall thickness is normal. The left ventricular systolic function is low normal with an estimated ejection fraction in the rang e of 50- 55%. No regional wall motion abnormalities are present. Doppler parameters are consistent with a pseudonormal left ventricular filling pattern with concomin ant abnormal relaxation and increased filling pressure (grade 2 diastolic dysfunction). RIGHT VENTRICLE The right ventricular size is normal. LEFT ATRIUM The left atrial size is xaod-qt-zgbqwapuii dilated. RIGHT ATRIUM The right atrial size is pjcq-zo-nikmbwnwsp dilated. ATRIAL SEPTUM The interatrial septum not well visualized. AORTA The aortic root and proximal ascending aorta are normal in size on limited imaging. MITRAL VALVE Moderate thickening of the mitral valve leaflets. The mitral valve flattens with out significant prolapse. Mild mitral valve regurgitation. AORTIC VALVE Cannot rule out a bicuspid aortic valve or trileaflet valve with partially fused commissure. Moderat e to severe aortic valve stenosis. Trace aortic valve regurgitation. TRICUSPID VALVE Structurally normal tricuspid valve. There is mild tricuspid valve regurgitation. Normal estimated pulmonary pressures. PULMONARY VALVE The pulmonary valve is not well visualized. VESSELS The inferior vena cava (IVC) is normal in size. There is greater than 50% respiratory change in dimension of the inferior vena cava (normal). PERICARDIUM No pericardial effusion. Matthew Davalos MD (Electronically Signed) Final Date:26 February 2017 10:36
== END ==
LOC: HECH 09:19
PROVIDERS: ATTEND Radiology Vascular & Interventional Radiology
DX: I35.0 Nonrheumatic aortic (valve) stenosis (principal)
CPT/HCPCS: 93306

== ENCOUNTER 2017-03-07 10:28 | Inpatient (IN) | payer MEDICARE, BC ==
[~2017-03-07] VITALS: Ht 167.6 cm; Wt 62.5 kg
[~2017-03-07 10:28] MED LIST changes: -ASPI81CH25 PO; -METO25TA3 PO; -PLAV75TA29 PO
[2017-03-07] MEDS ORDERED: MUPIROCIN 2% OINT 1 APPLIC/GM SYR NASAL SCH (11:00)
[2017-03-07] MEDS ORDERED: NS 1000 ML IV SCH (11:00)
[2017-03-07] MEDS ORDERED: ceFAZolin 2 GM PREMIX 50 ML IV SCH (11:15)
[2017-03-07] MEDS ORDERED: LACTATED RINGER'S 1000 ML IV PRN (11:15)
[2017-03-07] MEDS ORDERED: CHLORHEXIDINE GLUCONATE 2 % 1 PACK (2 CLOTHS) TOPICAL SCH (11:15)
[2017-03-07] MEDS ORDERED: SODIUM CHLORID 0.9% 500 ML IV PRN (11:15)
[2017-03-07] MEDS ORDERED: POVIDONE IODINE 5% (ANTISEPSIS KIT) 4 APPLICATIONS EACH NARE SCH (11:15)
[2017-03-07] MEDS ORDERED: INSULIN HUMAN REGULAR 1,000 UNITS/10 ML VIAL SQ PRN (11:15)
[2017-03-07] MEDS ORDERED: METOPROLOL TARTRATE 25 MG TAB PO PRN (11:15)
[2017-03-07] MEDS ORDERED: VANCOMYCIN 1000 MG/NS 250 ML IV SCH ×2 (11:45)
[2017-03-07 11:51] LABS: AUTOMATED NEUTROPHIL # 4.4 TH/MM3 (1.8-7.7); BASOPHIL # 0.1 TH/MM3 (0-0.2); BASOPHIL % 0.9 % (0.0-2.0); EOSINOPHIL # 0.2 TH/MM3 (0-0.4); EOSINOPHIL % 2.5 % (0.0-4.0); HEMATOCRIT 46.3 % (39.0-51.0); HEMO FLAGS DIFF FINAL; LYMPH % 21.7 % (9.0-44.0); LYMPHOCYTE # 1.5 TH/MM3 (1.0-4.8); MEAN CELL VOLUME 94.8 FL (80.0-100.0); MEAN CORPUSCULAR HEMOGLOBIN 31.4 PG (27.0-34.0); MEAN CORPUSCULAR HGB CONC 33.1 % (32.0-36.0); MONO % 11.9 % (0.0-8.0); PLATELET COUNT 162 TH/MM3 (150-450); RED BLOOD COUNT 4.88 MIL/MM3 (4.50-5.90); WHITE BLOOD COUNT 6.9 TH/MM3 (4.0-11.0)
[2017-03-07 11:52] VITALS: BP 128/64; PULSE 66; RESP 16; TEMP 97.9; O2SAT 98
[2017-03-07 12:01] LABS: APTT (PATIENT) 28.1 SEC (24.3-30.1); PROTHROMBIN TIME - PATIENT 11.1 SEC (9.8-11.6)
[2017-03-07] MEDS ORDERED: VANCOMYCIN HCL 1000 MG VIAL ONE (12:04)
[2017-03-07] MEDS ORDERED: SODIUM CHLOR 0.9% 250 ML INJ 250 ML ONE (12:04)
[2017-03-07 12:05] LABS: BICARBONATE 25.4 MEQ/L (21.0-32.0); POTASSIUM 4.1 MEQ/L (3.5-5.1)
[2017-03-07] MEDS ORDERED: ASPIRIN 325 MG TAB PO ONE (13:15)
[2017-03-07] MEDS ORDERED: HEPARIN-NS/PF INJ 2,000 ML ONE (14:45)
[2017-03-07] MEDS ORDERED: PROTAMINE SULFATE 50 MG/5 ML VIAL ONE (15:20)
[2017-03-07] MEDS ORDERED: HEPARIN SODIUM - IV 10,000 UNITS/10 ML VIAL ONE (15:20)
[2017-03-07] MEDS ORDERED: IOHEXOL 350 MG/ML 100 ML BTL (for RAD DIAG) IVCONTRAST ONE (17:11)
--- NOTE | 2017-03-07 17:32 | PD.OP ---
cc: Matthew Davalos MD; Mary Gayle MD Operative Report Date of Surgery: Mar 07, 2017 Preoperative Diagnosis: (1) Aortic stenosis (2) Diastolic CHF due to valvular disease Postoperative Diagnosis: same Procedure: Transcatheter aortic valve replacement with a 26 Raghavendra 3 tissue valve Balloon aortic valvuloplasty with a 20 True Balloon Left femoral artery percutaneous access with Perclose closure Right femoral artery and vein percutaneous access Aortography Fluoroscopy Anesthesia: Dr. Jeong Surgeon: Mary Gayle It Support Engineer(s): Co-surgeon - Dr. Joseph Ceja. - Dr. Dimas Castro Operation and Findings: The risks, benefits, complications, treatment options, and expected outcomes were discussed with the patient. The possibilities of reaction to medication, pulmonary aspiration, perforation of viscus, bleeding, recurrent infection, the need for additional procedures, failure to diagnose a condition, and creating a complication requiring transfusion or operation were discussed with the patient. The patient concurred with the proposed plan, giving informed consent. The site of surgery properly noted/marked. The patient was taken to the hybrid operating room, identified as Bethel Hernandez and the procedure verified as Transcatheter Aortic Valve Replacement. A Time Out was held and the above information confirmed. Standard monitoring lines and Chen catheter were placed. General anesthesia was induced. The patient was prepped and draped in a sterile fashion. Initially, right femoral arterial and venous access was acquired using a Seldinger percutaneous technique. The details of this procedure were dictated under separate note by cardiology. Once a pigtail was positioned in the aortic annulus and a temporary transvenous pacemaker wire was placed in the right ventricular apex and tested, a the patient was heparinized such that the ACT was greater than 300 second. The left femoral artery was accessed using Seldinger technique. Serial dilators were used to dilate the left femoral artery to 14 Prydeinig caliber. The Carreon sheath was then inserted into the artery up to the abdominal aorta. Arch aortography was performed to define the implant view. A balloon aortic valvuloplasty was then performed using a 20 x 6 True balloon with the patient being paced at 180 beats per minute. A 26 Carreon Raghavendra transcatheter aortic valve was then positioned in the annulus and deployed with the patient being paced at 180 beats per minute. Following deployment, the valve apparatus was withdrawn and arch aortography and CHIDI were performed to assess the valve. The valve had no significant perivalvular leaks. Gradients were then measured and the sheath was slowly withdrawn to the distal left common iliac artery under fluoroscopic guidance. The sheath was withdrawn under direct vision and the left femoral artery was closed with Perclose devices. Sterile dressings were placed. At the end of the operation, all sponge, instruments, and needle counts were correct. The patient was transferred to the CVICU in stable condition. Findings: Heavily calcified aortic valve Implants: 26 Raghavendra 3 tissue valve Complications: none Disposition: to CVICU in stable condition Mary Gayle MD Mar 07, 2017 17:32
--- NOTE | 2017-03-07 17:36 | PD.PROCEDR ---
Procedure Note Procedure Procedure: Transesophageal Echocardiography Diagnosis: Severe aortic stenosis Indications: Perioperative planning for TAVR Consent: Consent was obtained Anesthesia: Gen. endotracheal anesthesia Description of the Procedure: The patient was sedated and mechanically ventilated. The echo probe was inserted easily and without resistance. At the conclusion of the procedure, the echo probe was removed. Please see detailed echocardiogram report for formal findings. Preliminary Findings (not confirmed): Pre-procedure: 1) Concentric Left Ventricular Hypertrophy 2) Normal LV function, EF > 55% 3) Normal RV size and function 4) Severe aortic stenosis, mean gradient 30 mmHg, peak velocity 424 cm/s, valve area 0.6-0.7 cm^2 5) mild Aortic Regurgitation 6) mild mitral regurgitation 7) trace Tricuspid regurgitation 8) no evidence of intra-atrial shunting by color flow doppler 9) no pericardial effusion Post-procedure: 1) successful placement of TAVR valve 2) initially very small trace perivalvular leak adjacent to the left coronary cusp which resolved and was no longer present after a 10 minute interval delay 3) trace central aortic insufficiency 4) trace mitral insufficiency 5) trace tricuspid regurgitation 6) no pericardial effusion 7) no evidence of valvular stenosis, mean gradient across the aortic valve 4mmHg The patient tolerated the procedure well with no hemodynamic instability or hypoxia. There were no immediate complications noted. I personally performed the procedure. Yimi Benavides MD Mar 07, 2017 17:35
[2017-03-07 17:40] VITALS: BP 184/96; PULSE 69; RESP 16; TEMP 95.4
--- NOTE | 2017-03-07 17:43 | PD.CONS ---
[facility] Service Critical Care Medicine Consult Requested By Dr. Ruiz Reason for Consult management of comorbid medical conditions Primary Care Physician Janes Segura M.D. History of Present Illness This is a 71-year-old male with a history of COPD, tobacco abuse, peripheral vascular disease, and recent sarcoma excision status post XRT who presents for transcatheter aortic valve replacement for severe stenosis. He underwent uncomplicated TAVR. Postoperatively he comes to the cardiac vascular ICU recently extubated and arousing from anesthesia. Due to his persistent altered mental status and arousing from anesthesia, no additional information is available to be obtained from the patient. The remainder the history is obtained from chart review. Review of Systems ROS Limitations: Clinical Condition, Altered Mental Status ROS arousing from anesthesia Past Family Social History Allergies: Coded Allergies: cefepime (Unverified Allergy, Severe, 03/07/17) ceftaroline fosamil (Unverified Allergy, Severe, 03/07/17) cephalexin (Unverified Allergy, Severe, 03/07/17) penicillin G (Unverified Allergy, Severe, 03/07/17) Past Medical History AAA CVD s/p R CEA by Dr. Nuñez hyperlipidemia ongoing tobacco abuse HTN PAD Sarcoma Past Surgical History Angioplasty - both legs Elbow procedure Rotator cuff surgery Bilat inguinal hernia repairs Septoplasty Spinal fusion Thumb surgery Reported Medications Lipitor Ramipril Active Ordered Medications See MAR Family History Family history is reviewed in the chart and found to be noncontributory to his acute illness Social History 1-2ppd x 50 yrs, current smoker. Denies ETOH Retired from [employer] Physical Exam Vital Signs Vital Signs Date Time Temp Pulse Resp B/P (MAP) Pulse Ox O2 Delivery O2 Flow Rate FiO2 03/07/17 11:52 97.9 66 16 128/64 (85) 98 Physical Exam GENERAL: Frail elderly male, lying in bed, no acute distress, arousing from anesthesia HEENT: Normocephalic. Atraumatic. Pupils equal, round, reactive, conjugate. Mucous membranes are moist NECK: Trachea is midline. There is no JVD. Central line and transvenous pacer in right IJ, dressing intact CHEST: Unlabored respirations. Equal chest rise. Nasal cannula oxygen CARDIOVASCULAR: Normal rate, regular rhythm. Back up V paced, but not currently pacing. Sinus by telemetry. ABDOMEN: Soft, nontender, nondistended. No guarding. MUSCULOSKELETAL: Pulses 2+. No peripheral edema. Bilateral groin incisions clean dry and intact. No hematoma. NEUROLOGICAL: RASS -2. Arousing from anesthesia. No focal deficits. Moves all extremity spontaneously. Laboratory Laboratory Tests Test 03/07/17 10:50 White Blood Count 6.9 Red Blood Count 4.88 Hemoglobin 15.3 Hematocrit 46.3 Mean Corpuscular Volume 94.8 Mean Corpuscular Hemoglobin 31.4 Mean Corpuscular Hemoglobin Concent 33.1 Red Cell Distribution Width 14.0 Platelet Count 162 Mean Platelet Volume 8.5 Neutrophils (%) (Auto) 63.0 Lymphocytes (%) (Auto) 21.7 Monocytes (%) (Auto) 11.9 Eosinophils (%) (Auto) 2.5 Basophils (%) (Auto) 0.9 Neutrophils # (Auto) 4.4 Lymphocytes # (Auto) 1.5 Monocytes # (Auto) 0.8 Eosinophils # (Auto) 0.2 Basophils # (Auto) 0.1 CBC Comment DIFF FINAL Differential Comment Prothrombin Time 11.1 Prothromb Time International Ratio 1.0 Activated Partial Thromboplast Time 28.1 Blood Urea Nitrogen 17 Creatinine 1.39 Random Glucose 91 Calcium Level 9.0 Sodium Level 140 Potassium Level 4.1 Chloride Level 106 Carbon Dioxide Level 25.4 Anion Gap 9 Estimat Glomerular Filtration Rate 50 Result Diagram: 03/07/17 1050 03/07/17 1050 Assessment and Plan Assessment and Plan Assessment: 71-year-old male postop day 0 status post transcatheter aortic valve replacement. We'll keep in ICU overnight and monitor closely with close lower extremity neurovascular checks and groin monitoring. Recommendations: Severe Aortic stenosis s/p TAVR 03/07 -- flat x 6 hours -- plavix -- ASA in the AM -- frequent neurovascular and groin checks -- close monitoring of uop COPD Tobacco abuse -- wean o2 as tolerated to keep spo2 > 90% -- aggressive pulmonary toilet -- nebs prn Hypertension -- will restart home meds as needed -- may require nicardipine, goal sbp < 180 mmhg. advance diet after flat time remain in ICU tonight with art line, central line, pacer. Critical care medicine will continue to follow along while the patient is in the CVICU. Yimi Benavides MD Mar 07, 2017 17:43
[2017-03-07] MEDS ORDERED: SODIUM CHLOR 0.9% 1000 ML INJ 1,000 ML IV SCH (17:47)
[2017-03-07] MEDS ORDERED: MIDAZOLAM HCL 2 MG/2 ML VIAL ONE (17:52)
[2017-03-07] MEDS ORDERED: GLUCAGON 1 MG/ML VIAL OTHER PRN (18:00)
[2017-03-07] MEDS ORDERED: ATROPINE SULFATE 1 MG/ML VIAL IV PUSH PRN (18:00)
[2017-03-07] MEDS ORDERED: DEXTROSE 50% IN WATER 50 ML VIAL(D50) IV PRN (18:00)
[2017-03-07] MEDS ORDERED: CLOPIDOGREL 300 MG TAB PO ONE (18:45)
[2017-03-07] MEDS ORDERED: LIDOCAINE 1%/EPINEPHrine 1:100,000 SOLN 30 ML VIAL ONE (19:32)
[2017-03-07 20:00] VITALS: BP_SYST 116; BP_SYST 99; BP_DIAS 45; BP_DIAS 46; PULSE 67; PULSE 68; RESP 18; TEMP 98.4; O2SAT 98
[2017-03-07] MEDS ORDERED: MISC INFORMATION OTHER ONE (20:00)
[2017-03-07] MEDS: ATORVASTATIN 20 MG TAB PO SCH (21:00)
[2017-03-07] MEDS: INSULIN NovoLIN REGULAR SUPPLEMENTAL SCALE SQ SCH (21:00)
[2017-03-07 22:14] VITALS: O2SAT 99
[2017-03-08] VITALS (17 sets, daily range): BP systolic 118–150; BP diastolic 47–78; PULSE 56–82; RESP 6–20; TEMP 97.6–98.8; O2SAT 96–100
[2017-03-08] MEDS: PHENOL 1.4% SOLN 180 ML BTL OROPHARYNG PRN ×3 (00:28→05:07)
[2017-03-08 05:01] LABS: HEMATOCRIT 37.6 % (39.0-51.0); MEAN CELL VOLUME 94.2 FL (80.0-100.0); MEAN CORPUSCULAR HEMOGLOBIN 31.5 PG (27.0-34.0); MEAN CORPUSCULAR HGB CONC 33.4 % (32.0-36.0); PLATELET COUNT 96 TH/MM3 (150-450); RED BLOOD COUNT 3.99 MIL/MM3 (4.50-5.90); WHITE BLOOD COUNT 5.1 TH/MM3 (4.0-11.0)
[2017-03-08 05:10] LABS: REVIEW FLAG FINAL
--- NOTE | 2017-03-08 05:28 | MH ---
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 The patient has been complaining of progressive shortness of breath on minimal exertion. He was found to have severe aortic stenosis on his 2-D echo for which he was referred to the [facility] for evaluation. Upon further evaluation by the heart valve team, it was deemed that the patient was an intermediate risk for a conventional AVR given STS, frailty and recent history of sarcoma. The patient is being admitted today for TAVR. REVIEW OF SYSTEMS Negative except for what is mentioned in the HPI. PAST MEDICAL HISTORY 1. Anxiety. 2. Sarcoma. 3. Hyperlipidemia. 4. Hypertension. 5. Smoker. PAST SURGICAL HISTORY 1. 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 2. Hand surgery. 3. Hernia repair. 4. Nasal septal surgery. 5. Peripheral angiography. 6. Shoulder surgery. 7. Spine surgery. ALLERGIES KEFLEX. SOCIAL HISTORY Positive for smoking. Denies alcohol use or illicit drug use. FAMILY HISTORY Mother had a stroke. Father had cancer. Brother had a stroke. PHYSICAL EXAMINATION VITAL SIGNS: Temperature 97, respiratory rate 20, heart rate 70, blood pressure 136/75, O2 sat 100% room air. GENERAL: Awake, alert, oriented x 3, in no acute distress. NECK: No JVD, no carotid bruits. HEART: Regular rate and rhythm. There is a 3/6 systolic ejection murmur at the aortic focus. No gallops or rubs. LUNGS: Clear to auscultation bilaterally. No wheezes, no rhonchi, no rales. ABDOMEN: Soft, nontender, nondistended. Positive bowel sounds. EXTREMITIES: No cyanosis, no edema. Pulses throughout. DATA/TAVR WORKUP 1. Left heart cath - Nonobstructive coronary artery disease with preserved ejection fraction. 1. 2-D echocardiogram shows aortic valve velocity of 4, mean gradient of 39, a calculated valve area of 0.65 and ejection fraction of 60%. 2. PFTs - There is a moderately severe airway obstruction. 3. EKG - Sinus rhythm with nonspecific ST changes, frailty 2/4, STS score is 3%. 4. The patient was evaluated by two cardiothoracic surgeons independently who agreed that the patient is intermediate risk for AVR given comorbidities, STS score and frailty. 5. Iliacs - The patient had peripheral vascular disease. He has a minimal luminal diameter on the right of 4.4 mm and on the left of 5.7 mm. 6. CTA shows a calculated annular area of 518, adequate for a 26mm S3. ASSESSMENT AND PLAN 71-year-old male with chronic diastolic heart failure, hypertension, hyperlipidemia, peripheral vascular disease, smoker, history of sarcoma who presents with severe symptomatic aortic stenosis with [place] Heart Association Class II symptoms. He has been evaluated by the TAVR team and deemed intermediate risk for conventional AVR. He has been admitted today for elective left transfemoral TAVR. The risks and benefits of TAVR include but not limited to bleeding, infection, kidney injury, stroke, emergent bypass surgery, neurovascular trauma, permanent pacemaker and have been explained to the patient. The patient understands the risks and is willing to proceed. PLAN 1. Keep n.p.o. for left transfemoral TAVR today. 2. After the procedure the patient will be started on aspirin and Plavix. 3. Further therapy to be determined. MD JONATHAN Galarza/DANIEL /5:59 PM /4:59 AM ARIN
[2017-03-08 05:35] LABS: ALKALINE PHOSPHATASE 74 U/L (45-117); ALT (GPT) 20 U/L (12-78); ANION GAP 9 MEQ/L (5-15); AST (GOT) 19 U/L (15-37); BICARBONATE 23.5 MEQ/L (21.0-32.0); BLOOD UREA NITROGEN 13 MG/DL (7-18); CHLORIDE 107 MEQ/L (98-107); GLOMERULAR FILTRATION RATE 95 ML/MIN (>89); POTASSIUM 3.7 MEQ/L (3.5-5.1); SODIUM (NA) 139 MEQ/L (136-145); TOTAL BILIRUBIN ADULT 0.7 MG/DL (0.2-1.0)
--- NOTE | 2017-03-08 05:52 | MA ---
cc: MATTHEW DANIEL DATE OF 1945 DATE OF PROCEDURE March 07, 2017 PREOPERATIVE DIAGNOSES 1. Severe aortic stenosis with preserved LV systolic function. Aortic stenosis with calculated valve area of 0.65, mean gradient of 39 mmHg and aortic valve velocity of 3.9, ejection fraction 60%. 2. Symptoms of progressive worsening of shortness of breath on minimal exertion , [place] Heart Association Class III symptoms. 3. Hypertension. 4. Hyperlipidemia. 5. COPD. 6. Smoker. 7. Left leg sarcoma status post resection and radiation. POSTOPERATIVE DIAGNOSIS 1. Severe aortic stenosis with preserved LV systolic function. Aortic stenosis with calculated valve area of 0.65, mean gradient of 39 mmHg and aortic valve velocity of 3.9, ejection fraction 60%. 2. Symptoms of progressive worsening of shortness of breath on minimal exertion , [place] Heart Association Class III symptoms. 3. Hypertension. 4. Hyperlipidemia. 5. COPD. 6. Smoker. 7. Left leg sarcoma status post resection and radiation. OPERATIVE PROCEDURE 1. Left transfemoral transaortic valve replacement with a 26-mm S3 aortic valve. 2. Balloon aortic valvuloplasty with a 20 through balloon. 3. Aortic root angiogram. 4. Placement of pigtail catheter for angiography. 5. Temporary pacemaker insertion. 6. Perclose right and left common femoral arteries. ANESTHESIA Dr. Jeong. SURGEONS Dr. Mary Cochran CHARGER TESTER Dr. Joseph Ospina ECHO SUPPORT Dr. Calixto Benavides INDICATIONS 71-year-old male with severe symptomatic aortic stenosis with progressive symptoms of heart failure and minimal shortness of breath on exertion. The patient has been evaluated for aortic valve replacement by two cardiac surgeons who felt that the patient would be intermediate risk for conventional aortic valve replacement on the basis of frailty, STS score and comorbidities. He has been evaluated for and accepted after extensive review of patient's chart by the TAVR team for transaortic valve replacement. The risks of the procedures have been discussed with the patient at length and the consents have been signed to proceed as planned. TECHNIQUE The patient was under general anesthesia. A transesophageal echocardiogram probe was placed and used through the procedure to evaluate aortic valve and position of heart catheters. Intraoperative transesophageal echo demonstrated severe aortic stenosis with a valve area of 0.65 and preserved ejection fraction with an EF of 60%. The right femoral artery and vein was entered percutaneously with a 6-Romanian sheath that was put in the left common femoral artery and a 5-Romanian sheath that was placed in the left femoral vein. Through the left anterior sheath, a pigtail catheter was advanced over a J-wire, around the arch of the aorta and an aortic angiography was performed in order to get multiple views for deployment of the ERIC transcatheter aortic valve. The valve access site was accessed with a micropuncture. Lidocaine was put in the left groin. Then, using a micropuncture the left common femoral artery was accessed. Angiography was performed through the micropuncture sheath to confirm position of the puncture site as well as any complications of bleeding. After that an 8-Romanian sheath was inserted into the left common femoral artery. This was followed by pre-closing the artery would with two Percloses. Then a 0.035 wire was advanced into the ascending aorta, followed by dilating the common femoral artery with a 10-Romanian dilator. This was followed with introduction of a 14-Romanian aortic valve sheath. The patient was fully heparinized with an ACT checked afterwards. Then we used an AL-1 over a straight, stiff Glidewire to cross the aortic valve with the tip left in the mid -left ventricular chamber. This was followed by insertion of a 6-Romanian angled pigtail and reshaping then a stiff Amplatz wire that was preshaped to the ventricular size. Then the pigtail was removed and a 20-mm BAV True balloon was introduced for balloon aortic valvuloplasty with rapid pacing. After BAV was performed, we inserted an S3 26 ERIC valve was placed with position confirmed with aortography. The balloon was mounted into the valve in the aorta, then advanced across the valve using a pigtail catheter, fluoroscopy and CHIDI to confirm position. After confirmation of position of the valve, the angiography was successfully deployed by balloon inflation during rapid pacing positive flow and there were no signs of para-aortic leaks or aortic regurgitation on CHIDI. The patient tolerated the procedure well without complication. The catheters then were removed. Then the delivery sheath was removed from the left femoral artery and then Perclose. Finally the pigtail was removed and then the sheath of the left side was removed and the vessel was Perclosed and the vein was Mynx. FINDINGS This concluded the operation. Postoperative transesophageal echocardiogram demonstrated adequate function of the aortic prosthesis. The post-aortic valve area was 1.7. The post-implant mean gradient was 4mmHg. The post-implant peak velocity was 1.7. There was no aortic insufficiency upon conclusion of the case. COMPLICATIONS None. DISPOSITION 1. To the CV/ICU in stable condition for post-cath care. 1. DAPT with aspirin and Plavix. 2. Early extubation. 3. Temporary pacemaker will remain in place for the next 24 hours, continue telemetry monitoring. Matthew Daniel MD MOBILE PET GROOMER/SSB /6:14 PM /5:23 AM MTDJeet
[2017-03-08] MEDS: INSULIN NovoLIN REGULAR SUPPLEMENTAL SCALE SQ SCH ×3 (06:00→21:00)
--- NOTE | 2017-03-08 09:15 | RADRPT ---
EXAM DATE/TIME: 03/08/2017 08:17 [facility] COMPARISON: No previous studies available for comparison. INDICATIONS : Status post transcatheter aortic valve replacement MEDICAL HISTORY : Cardiovascular disease. aotic stenosis SURGICAL HISTORY : TAVR aortic valve replaced ENCOUNTER: Initial ACUITY: 2 days PAIN SCORE: 0/10 LOCATION: Bilateral chest FINDINGS: A single view of the chest demonstrates the lungs to be symmetrically aerated without evidence of mas s, infiltrate or effusion. The cardiomediastinal contours are unremarkable. Osseous structures are intact. There multiple overlying electrocardiogram leads. There is a right internal jugular central v enous line in place as well as transvenous catheter with the tip projected over the right ventricle. An aortic valve prosthesis is noted. CONCLUSION: 1. No acute cardiopulmonary disease. 2. Aortic valve prosthesis in place. Adriano Duncan MD on March 08, 2017 at 9:12 Board Certified Radiologist. This report was verified electronically.
[2017-03-08] MEDS: RAMIPRIL 5 MG CAP PO SCH (09:53)
[2017-03-08] MEDS: ASPIRIN 81 MG CHEW TAB PO SCH (09:55)
[2017-03-08] MEDS: CLOPIDOGREL 75 MG TAB PO SCH (09:55)
[2017-03-08] MEDS ORDERED: FUROSEMIDE 20 MG/2 ML VIAL IV PUSH ONE (10:30)
--- NOTE | 2017-03-08 11:02 | PD.CARD.PN ---
Subjective Subjective Remarks No overnight events Out of bed after bed rest No chest pain, ambulating without difficulty Objective Medications Current Medications Medications (Trade) Dose Ordered Sig/Smith Route Start Time Stop Time Status Last Admin (Betadine 5% Antisepsis Kit) 2 applic DYE RANGE FEEDER EACH NARE 03/07/17 11:15 03/10/17 11:14 (Bactroban Nasal 2% Oint) 1 applic DYE RANGE FEEDER NASAL 03/07/17 11:00 03/10/17 10:59 (Chlorhexidine 2% Cloth) 3 pack DYE RANGE FEEDER TOPICAL 03/07/17 11:15 03/10/17 11:14 Lactated Ringer's 1,000 ml @ 30 mls/hr Q24H PRN IV 03/07/17 11:15 03/10/17 11:14 Sodium Chloride 500 ml @ 30 mls/hr [id number] PRN IV 03/07/17 11:15 03/10/17 11:14 (Lopressor) 25 mg DYE RANGE FEEDER PRN PO 03/07/17 11:15 03/10/17 11:14 (NovoLIN R INJ) See Protocol Table ... DYE RANGE FEEDER PRN SQ 03/07/17 11:15 03/10/17 11:14 Vancomycin HCl 1000 mg/Sodium Chloride 250 ml @ 250 mls/hr DYE RANGE FEEDER IV 03/07/17 11:45 03/10/17 11:44 03/07/17 15:50 (Atropine Inj) 0.5 mg UNSCH PRN IV PUSH 03/07/17 18:00 03/08/17 17:59 (Aspirin Chew) 81 mg DAILY PO 03/08/17 09:00 03/08/17 09:55 (Plavix) 75 mg DAILY PO 03/08/17 09:00 03/08/17 09:55 (D50w (Vial) Inj) 50 ml UNSCH PRN IV 03/07/17 18:00 (Glucagon Inj) 1 mg UNSCH PRN OTHER 03/07/17 18:00 (NovoLIN R SUPPLEMENTAL SCALE) 1 ACHS SLIDING SCALE SQ 03/07/17 21:00 (Lipitor) 20 mg HS PO 03/07/17 21:00 03/07/17 21:00 (Altace) 10 mg DAILY PO 03/08/17 09:00 03/08/17 09:53 (Chloraseptic [place]) 2 spray Q2H PRN OROPHARYNG 03/08/17 00:15 03/08/17 05:07 Vital Signs / I&O Vital Signs Date Time Temp Pulse Resp B/P (MAP) Pulse Ox O2 Delivery O2 Flow Rate FiO2 03/08/17 07:00 99 Room Air 03/08/17 07:00 70 03/08/17 07:00 97.6 70 20 128/63 (84) 99 03/08/17 05:00 99 Room Air 03/08/17 04:00 56 03/08/17 04:00 98.8 56 18 118/56 (76) 99 148/47 (80) 03/08/17 00:15 99 Nasal Cannula 2.00 03/08/17 00:12 99 Nasal Cannula 4.00 03/08/17 00:00 99 Nasal Cannula 2.00 03/08/17 00:00 62 03/08/17 00:00 63 18 127/52 (77) 99 150/50 (83) 03/07/17 22:14 99 Nasal Cannula 4.00 03/07/17 20:00 98 Nasal Cannula 4.00 03/07/17 20:00 68 03/07/17 20:00 98.4 67 18 99/45 (63) 98 116/46 (69) 03/07/17 17:40 69 03/07/17 17:40 95.4 69 16 184/96 (125) 03/07/17 11:52 97.9 66 16 128/64 (85) 98 I/O 03/07/17 03/07/17 03/07/17 03/08/17 03/08/17 03/08/17 07:00 15:00 23:00 07:00 15:00 23:00 Intake Total 1450 ml 1880 ml Output Total 525 ml 650 ml Balance 925 ml 1230 ml Intake Oral 50 ml 780 ml IV Total 1100 ml Other 1400 ml Output Urine Total 525 ml 650 ml # Bowel Movements 0 0 Physical Exam GENERAL: Well-nourished, well-developed patient. SKIN: Warm and dry. HEAD: Normocephalic. EYES: No scleral icterus. No injection or drainage. NECK: Supple, trachea midline. No JVD or lymphadenopathy. CARDIOVASCULAR: Regular rate and rhythm without murmurs, gallops, or rubs. RESPIRATORY: Breath sounds equal bilaterally. No accessory muscle use. GASTROINTESTINAL: Abdomen soft, non-tender, nondistended. EXTREMITIES: No cyanosis, or edema. NEUROLOGICAL: Awake, alert, and oriented x 3. Non-focal. Laboratory Laboratory Tests Test 03/08/17 04:45 White Blood Count 5.1 TH/MM3 Red Blood Count 3.99 MIL/MM3 Hemoglobin 12.6 GM/DL Hematocrit 37.6 % Mean Corpuscular Volume 94.2 FL Mean Corpuscular Hemoglobin 31.5 PG Mean Corpuscular Hemoglobin Concent 33.4 % Red Cell Distribution Width 14.0 % Platelet Count 96 TH/MM3 Mean Platelet Volume 8.0 FL Blood Urea Nitrogen 13 MG/DL Creatinine 0.80 MG/DL Random Glucose 92 MG/DL Total Protein 5.9 GM/DL Albumin 3.0 GM/DL Calcium Level 8.1 MG/DL Alkaline Phosphatase 74 U/L Aspartate Amino Transf (AST/SGOT) 19 U/L Alanine Aminotransferase (ALT/SGPT) 20 U/L Total Bilirubin 0.7 MG/DL Sodium Level 139 MEQ/L Potassium Level 3.7 MEQ/L Chloride Level 107 MEQ/L Carbon Dioxide Level 23.5 MEQ/L Anion Gap 9 MEQ/L Estimat Glomerular Filtration Rate 95 ML/MIN Assessment and Plan Problem List: (1) Aortic stenosis ICD Codes: I35.0 - Nonrheumatic aortic (valve) stenosis Status: Acute Plan: 71 y/o F s/p left TF TAVR with a 26mm S3 valve. He remains afebrile and hemodynamically stable. On exam evidence of acute on chronic diastolic heart failure. Recommendations: 1. IV diuresis 2. DAPT with ASA and Plavix 3. Encourage ambulation and Incentive Spirometry 4. Tx to CIC 5. D/C PMM and IJ (2) Sarcoma ICD Codes: C49.9 - Malignant neoplasm of connective and soft tissue, unspecified Status: Acute (3) Renal insufficiency ICD Codes: N28.9 - Disorder of kidney and ureter, unspecified Status: Acute (4) HTN (hypertension) ICD Codes: I10 - Essential (primary) hypertension Status: Acute (5) Failure of outpatient treatment ICD Codes: Z78.9 - Other specified health status Status: Acute (6) PVD (posterior vitreous detachment), both eyes ICD Codes: H43.813 - Vitreous degeneration, bilateral Status: Acute (7) Tobacco abuse ICD Codes: Z72.0 - Tobacco use Status: Acute (8) Lower extremity cellulitis ICD Codes: L03.119 - Cellulitis of unspecified part of limb Status: Acute (9) Diastolic CHF due to valvular disease ICD Codes: I38 - Endocarditis, valve unspecified; I50.30 - Unspecified diastolic (congestive) heart failure Status: Acute Problem Qualifiers (1) Aortic stenosis: Qualified Codes: I35.0 - Nonrheumatic aortic (valve) stenosis Matthew Davalos MD Mar 08, 2017 11:02
--- NOTE | 2017-03-08 14:11 | PD.CAR.PN ---
CVT Progress Note Subjective/Hospital Course: 71-year-old male with a history of COPD, tobacco abuse, peripheral vascular disease, and recent sarcoma excision status post XRT who presents for transcatheter aortic valve replacement for severe stenosis. Past Medical History AAA Carotid disease s/p R CEA by Dr. Nuñez hyperlipidemia ongoing tobacco abuse HTN PAD Sarcoma diastolic CHF 2/2 valvular disease surgery : 03/07 Transcatheter aortic valve replacement with a 26 Raghavendra 3 tissue valve Balloon aortic valvuloplasty with a 20 True Balloon Left femoral artery percutaneous access with Perclose closure Right femoral artery and vein percutaneous access 03/08 doing well, up in chair, temp pacer and RIJ CVC dc dressing in place both groin, no swelling or hematoma, good distal pulses NSR, no AV block Objective: GENERAL: SKIN: Warm and dry. dressing to both groins intact HEAD: Normocephalic. EYES: No scleral icterus. No injection or drainage. NECK: Supple, trachea midline. No JVD or lymphadenopathy. CARDIOVASCULAR: Regular rate and rhythm without murmurs, gallops, or rubs. + distal pulses RESPIRATORY: Breath sounds equal bilaterally. No accessory muscle use. GASTROINTESTINAL: Abdomen soft, non-tender, nondistended. MUSCULOSKELETAL: No cyanosis, or edema. BACK: Nontender without obvious deformity. No CVA tenderness. Vital Signs Date Time Temp Pulse Resp B/P (MAP) Pulse Ox O2 Delivery O2 Flow Rate FiO2 03/08/17 12:10 72 16 149/78 (101) 100 03/08/17 11:00 99 Room Air 03/08/17 11:00 98.0 82 20 137/62 (87) 99 03/08/17 11:00 60 03/08/17 07:00 99 Room Air 03/08/17 07:00 70 03/08/17 07:00 97.6 70 20 128/63 (84) 99 03/08/17 05:00 99 Room Air 03/08/17 04:00 56 03/08/17 04:00 98.8 56 18 118/56 (76) 99 148/47 (80) 03/08/17 00:15 99 Nasal Cannula 2.00 03/08/17 00:12 99 Nasal Cannula 4.00 03/08/17 00:00 99 Nasal Cannula 2.00 03/08/17 00:00 62 03/08/17 00:00 63 18 127/52 (77) 99 150/50 (83) 03/07/17 22:14 99 Nasal Cannula 4.00 03/07/17 20:00 98 Nasal Cannula 4.00 03/07/17 20:00 68 03/07/17 20:00 98.4 67 18 99/45 (63) 98 116/46 (69) 03/07/17 17:40 69 03/07/17 17:40 95.4 69 16 184/96 (125) Labs: Laboratory Tests Test 03/08/17 04:45 White Blood Count 5.1 TH/MM3 (4.0-11.0) Red Blood Count 3.99 MIL/MM3 (4.50-5.90) Hemoglobin 12.6 GM/DL (13.0-17.0) Hematocrit 37.6 % (39.0-51.0) Mean Corpuscular Volume 94.2 FL (80.0-100.0) Mean Corpuscular Hemoglobin 31.5 PG (27.0-34.0) Mean Corpuscular Hemoglobin Concent 33.4 % (32.0-36.0) Red Cell Distribution Width 14.0 % (11.6-17.2) Platelet Count 96 TH/MM3 (150-450) Mean Platelet Volume 8.0 FL (7.0-11.0) Blood Urea Nitrogen 13 MG/DL (7-18) Creatinine 0.80 MG/DL (0.60-1.30) Random Glucose 92 MG/DL (74-106) Total Protein 5.9 GM/DL (6.4-8.2) Albumin 3.0 GM/DL (3.4-5.0) Calcium Level 8.1 MG/DL (8.5-10.1) Alkaline Phosphatase 74 U/L (45-117) Aspartate Amino Transf (AST/SGOT) 19 U/L (15-37) Alanine Aminotransferase (ALT/SGPT) 20 U/L (12-78) Total Bilirubin 0.7 MG/DL (0.2-1.0) Sodium Level 139 MEQ/L (136-145) Potassium Level 3.7 MEQ/L (3.5-5.1) Chloride Level 107 MEQ/L (98-107) Carbon Dioxide Level 23.5 MEQ/L (21.0-32.0) Anion Gap 9 MEQ/L (5-15) Estimat Glomerular Filtration Rate 95 ML/MIN (>89) Result Diagram: 03/08/175 03/08/17 0445 (1) Aortic stenosis Plan: 71 y/o F s/p left TF TAVR with a 26mm S3 valve. hemodynamically stable. diuresis ASA and Plavix OOB ambulate ok to transfer to stepdown will defer orders to Dr Ruiz, will see prn (2) Sarcoma (3) Renal insufficiency (4) HTN (hypertension) (5) Failure of outpatient treatment (6) PVD (posterior vitreous detachment), both eyes (7) Tobacco abuse (8) Lower extremity cellulitis (9) Diastolic CHF due to valvular disease Problem Qualifiers (1) Aortic stenosis: Qualified Codes: I35.0 - Nonrheumatic aortic (valve) stenosis Cherelle Horne Mar 08, 2017 14:11
--- NOTE | 2017-03-08 16:10 | ECHRPT ---
Indication: CONCLUSIONS The left ventricular systolic function is hyperdynamic with an estimated ejection fraction in the ra nge of 65- 70%. Normal left ventricular size. Moderate concentric left ventricular hypertrophy. No regional wall motion abnormalities are present. The aortic valve prosthesis is normal to two-dimensional, color flow and Doppler interrogation. No paravalvular leak. Aortic valve area is 1.8 cm. Aortic valve mean gradient is 6 mmHg. BP: 118 / 56 HR: 56 Rhythm: Sinus MEASUREMENTS (Male / Female) Normal Values Technical Quality:Good 2D ECHO LV Diastolic Diameter PLAX 3.7 cm 4.2 - 5.9 / 3.9 - 5.3 cm LV Systolic Diameter PLAX 2.4 cm IVS Diastolic Thickness 1.4 cm 0.6 - 1.0 / 0.6 - 0.9 cm LVPW Diastolic Thickness 1.3 cm 0.6 - 1.0 / 0.6 - 0.9 cm LV Relative Wall Thickness 0.7 LVOT Diameter 1.9 cm LV Ejection Fraction MOD 4C 71.3 % LV Cardiac Index MOD 4C 2247.8 cm/minm LV Ejection Fraction 4C AL 73.1 % LV Cardiac Index 4C AL 2393.5 cm/minm M-MODE Aortic Root Diameter MM 2.7 cm DOPPLER AV Peak Velocity 192.0 cm/s AV Peak Gradient 14.7 mmHg AV Mean Gradient 6.0 mmHg AV Velocity Time Integral 38.2 cm LVOT Peak Velocity 100.0 cm/s LVOT Peak Gradient 4.0 mmHg LVOT Velocity Time Integral 24.2 cm LVOT Cardiac Index 2301.9 cm/minm AV Area Cont Eq vti 1.8 cm AV Area Cont Eq pk 1.5 cm FINDINGS LEFT VENTRICLE The left ventricular systolic function is hyperdynamic with an estimated ejection fraction in the ra nge of 65- 70%. Normal left ventricular size. Moderate concentric left ventricular hypertrophy. No regional wall motion abnormalities are present. Severe thickening of the mitral valve leaflets. MITRAL VALVE Severe thickening of the mitral valve leaflets. AORTIC VALVE The aortic valve prosthesis is normal to two-dimensional, color flow and Doppler interrogation. Aortic valve area is 1.8 cm. Aortic valve mean gradient is 6 mmHg. Osmar Ospina MD, FACC (Electronically Signed) Final Date:08 March 2017 16:08
--- NOTE | 2017-03-08 17:43 | EKG ---
Date Performed: 03/07/2017 Time Performed: 11:24:18 PTAGE: 71 years EKG: Sinus rhythm with aberrantly conducted supraventricular complexes rSr'(V1) - probable normal variant Septal T wav e changes are nonspecific Borderline ECG Compared to prior tracing no significant change PREVIOUS TRACING : 02/02/2017 08.42 DOCTOR: Thomas Mosqueda Interpretating Date/Time 03/08/2017 17:40:54
--- NOTE | 2017-03-08 18:46 | MB ---
cc: PAIGE HERNANDEZ DATE OF CONSULTATION 03/08/17 REASON FOR CONSULTATION Post TAVR for AV node conduction evaluation and possible pacing. HISTORY OF PRESENT ILLNESS Mr. Hernandez is a 71-year-old gentleman with history of COPD, peripheral vascular disease, aortic stenosis status post TAVR referred for evaluation for conduction disease. The chart was reviewed. The patient was evaluated. ALLERGIES CEFEPIME. CEPHALEXIN PENICILLIN SOCIAL HISTORY Patient is still smoking. MEDICATIONS Currently 1. Plavix. 2. Atorvastatin. 3. Aspirin 4. Vancomycin. 5. Lasix was given. 6. Altace. REVIEW OF SYSTEMS The patient refers feeling better. No chest pain or chest discomfort. No vomiting. No fever. PHYSICAL EXAMINATION GENERAL: Alert, fully oriented. VITAL SIGNS: Blood pressure on evaluation 137/62, pulse 82, respiratory rate 18. LUNGS: Ventilated. CARDIOVASCULAR: S1-S2, no gallop. No murmur. ABDOMEN: Soft. No mass. No bruit. EXTREMITIES: No edema. CARDIOLOGY STUDIES Telemetry shows sinus rhythm. Electrocardiogram shows sinus rhythm, right axis, no acute ST and T-wave changes. NM interval around 140 milliseconds. LABORATORY DATA Hemoglobin is 12.6, white blood cell 5.1, potassium 2.7, creatinine is 0.80. ASSESSMENT AND RECOMMENDATIONS Mr. Hernandez is currently stable. No active conduction disease. No pause observed. My recommendation is continue with current management. No need for pacing support. No gross conduction disease. I will follow him only on a p.r.n. basis. MD KAYLA Mai/ /1:54 PM /6:27 PM
[2017-03-08] MEDS: ATORVASTATIN 20 MG TAB PO SCH (20:19)
[2017-03-09] VITALS (13 sets, daily range): BP systolic 108–140; BP diastolic 59–64; PULSE 62–98; RESP 16–18; TEMP 98–98.4; O2SAT 96–97
[2017-03-09] MEDS: INSULIN NovoLIN REGULAR SUPPLEMENTAL SCALE SQ SCH (06:37)
[2017-03-09] MEDS: ASPIRIN 81 MG CHEW TAB PO SCH (08:44)
[2017-03-09] MEDS: RAMIPRIL 5 MG CAP PO SCH (08:44)
[2017-03-09] MEDS: CLOPIDOGREL 75 MG TAB PO SCH (08:44)
--- NOTE | 2017-03-09 09:00 | PD.CARD.PN ---
Subjective Subjective Remarks no complaints no overnight events Objective Medications Current Medications Medications (Trade) Dose Ordered Sig/Smith Route Start Time Stop Time Status Last Admin (Betadine 5% Antisepsis Kit) 2 applic MULTIMEDIA ASSISTANT EACH NARE 03/07/17 11:15 03/10/17 11:14 (Bactroban Nasal 2% Oint) 1 applic MULTIMEDIA ASSISTANT NASAL 03/07/17 11:00 03/10/17 10:59 (Chlorhexidine 2% Cloth) 3 pack MULTIMEDIA ASSISTANT TOPICAL 03/07/17 11:15 03/10/17 11:14 Lactated Ringer's 1,000 ml @ 30 mls/hr Q24H PRN IV 03/07/17 11:15 03/10/17 11:14 Sodium Chloride 500 ml @ 30 mls/hr [id number] PRN IV 03/07/17 11:15 03/10/17 11:14 (Lopressor) 25 mg MULTIMEDIA ASSISTANT PRN PO 03/07/17 11:15 03/10/17 11:14 (NovoLIN R INJ) See Protocol Table ... MULTIMEDIA ASSISTANT PRN SQ 03/07/17 11:15 03/10/17 11:14 Vancomycin HCl 1000 mg/Sodium Chloride 250 ml @ 250 mls/hr MULTIMEDIA ASSISTANT IV 03/07/17 11:45 03/10/17 11:44 03/07/17 15:50 (Aspirin Chew) 81 mg DAILY PO 03/08/17 09:00 03/09/17 08:44 (Plavix) 75 mg DAILY PO 03/08/17 09:00 03/09/17 08:44 (D50w (Vial) Inj) 50 ml UNSCH PRN IV 03/07/17 18:00 (Glucagon Inj) 1 mg UNSCH PRN OTHER 03/07/17 18:00 (NovoLIN R SUPPLEMENTAL SCALE) 1 ACHS SLIDING SCALE SQ 03/07/17 21:00 (Lipitor) 20 mg HS PO 03/07/17 21:00 03/08/17 20:19 (Altace) 10 mg DAILY PO 03/08/17 09:00 03/09/17 08:44 (Chloraseptic [place]) 2 spray Q2H PRN OROPHARYNG 03/08/17 00:15 03/08/17 05:07 Vital Signs / I&O Vital Signs Date Time Temp Pulse Resp B/P (MAP) Pulse Ox O2 Delivery O2 Flow Rate FiO2 03/09/17 08:52 68 03/09/17 07:32 74 03/09/17 07:31 98.4 62 18 108/59 (75) 97 03/09/17 06:00 98 03/09/17 05:00 69 03/09/17 04:00 82 03/09/17 03:45 98.0 74 16 140/64 (89) 96 03/09/17 03:00 63 03/09/17 02:00 63 03/09/17 01:00 69 03/09/17 00:00 65 03/08/17 23:10 97.9 63 16 137/57 (83) 96 03/08/17 23:00 59 03/08/17 22:00 64 03/08/17 21:00 70 03/08/17 20:00 72 03/08/17 20:00 97.7 78 18 124/55 (78) 98 03/08/17 20:00 98 Room Air 03/08/17 19:00 80 03/08/17 18:00 78 03/08/17 17:00 70 03/08/17 16:00 66 03/08/17 15:00 98 Room Air 03/08/17 15:00 66 03/08/17 15:00 98.5 71 16 137/58 (84) 98 Arterial Line 03/08/17 12:10 72 16 149/78 (101) 100 03/08/17 11:00 99 Room Air 03/08/17 11:00 98.0 82 20 137/62 (87) 99 03/08/17 11:00 60 I/O 03/08/17 03/08/17 03/08/17 03/09/17 03/09/17 03/09/17 07:00 15:00 23:00 07:00 15:00 23:00 Intake Total 1880 ml 480 ml 480 ml 240 ml Output Total 650 ml 1150 ml 450 ml 500 ml Balance 1230 ml -670 ml 30 ml -260 ml Intake Oral 780 ml 480 ml 480 ml 240 ml IV Total 1100 ml Output Urine Total 650 ml 1150 ml 450 ml 500 ml # Bowel Movements 0 0 0 Physical Exam GENERAL: Well-nourished, well-developed patient. SKIN: Warm and dry. HEAD: Normocephalic. EYES: No scleral icterus. No injection or drainage. NECK: Supple, trachea midline. No JVD or lymphadenopathy. CARDIOVASCULAR: Regular rate and rhythm without murmurs, gallops, or rubs. RESPIRATORY: Breath sounds equal bilaterally. No accessory muscle use. GASTROINTESTINAL: Abdomen soft, non-tender, nondistended. EXTREMITIES: No cyanosis, or edema. NEUROLOGICAL: Awake, alert, and oriented x 3. Non-focal. Laboratory Laboratory Tests Test 03/08/17 14:57 Imaging Last Impressions Chest X-Ray 03/08/17 0000 Signed Impressions: Service Date/Time: , March 08, 2017 08:17 - CONCLUSION: 1. No acute cardiopulmonary disease. 2. Aortic valve prosthesis in place. Adriano Duncan MD Assessment and Plan Problem List: (1) Aortic stenosis ICD Codes: I35.0 - Nonrheumatic aortic (valve) stenosis Status: Acute Plan: Plan: 71 y/o F s/p left TF TAVR with a 26mm S3 valve. He remains afebrile, hemodynamically stable, compensated from HF standpoint. Recommendations: 1. DAPT with ASA and Plavix 2. Encourage ambulation and Incentive Spirometry 3. Stable to be d/c home today 4. 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, unspecified Status: Acute (3) Renal insufficiency ICD Codes: N28.9 - Disorder of kidney and ureter, unspecified Status: Acute (4) HTN (hypertension) ICD Codes: I10 - Essential (primary) hypertension Status: Acute (5) Failure of outpatient treatment ICD Codes: Z78.9 - Other specified health status Status: Acute (6) PVD (posterior vitreous detachment), both eyes ICD Codes: H43.813 - Vitreous degeneration, bilateral Status: Acute (7) Tobacco abuse ICD Codes: Z72.0 - Tobacco use Status: Acute (8) Lower extremity cellulitis ICD Codes: L03.119 - Cellulitis of unspecified part of limb Status: Acute (9) Diastolic CHF due to valvular disease ICD Codes: I38 - Endocarditis, valve unspecified; I50.30 - Unspecified diastolic (congestive) heart failure Status: Acute Problem Qualifiers (1) Aortic stenosis: Qualified Codes: I35.0 - Nonrheumatic aortic (valve) stenosis Ruiz-Melanie,Matthew R MD Mar 09, 2017 09:00
[2017-03-09] MEDS ORDERED: METO25TA3 PO (09:05)
[2017-03-09] MEDS ORDERED: ASPI81CH25 PO (09:05)
[2017-03-09] MEDS ORDERED: PLAV75TA29 PO (09:05)
--- NOTE | 2017-03-09 09:09 | HHI.DS ---
Discharge Summary Admission Date Mar 07, 2017 at 10:29 Discharge Date: Mar 09, 2017 Admitting Diagnosis Severe Aortic Stenosis Acute on Chronic diastolic Dysfunction (1) Acute on chronic diastolic (congestive) heart failure Diagnosis: Secondary ICD Codes: I50.33 - Acute on chronic diastolic (congestive) heart failure Status: Acute (2) Aortic valve stenosis, severe Diagnosis: Principal ICD Codes: I35.0 - Nonrheumatic aortic (valve) stenosis (3) Tobacco abuse Diagnosis: Secondary ICD Codes: Z72.0 - Tobacco use Status: Acute (4) HTN (hypertension) Diagnosis: Secondary ICD Codes: I10 - Essential (primary) hypertension Status: Acute (5) Diastolic CHF due to valvular disease Diagnosis: Secondary ICD Codes: I38 - Endocarditis, valve unspecified; I50.30 - Unspecified diastolic (congestive) heart failure Status: Acute Procedures Left TF TAVR 26mm S3 Brief History 71 y/o M with severe symptomatic with NYHA III sx. Admitted for elective TAVR. CBC/BMP: 03/08/17 0445 03/08/17 0445 Significant Findings Laboratory Tests Test 03/07/17 10:50 03/08/17 04:45 03/08/17 14:57 Monocytes (%) (Auto) 11.9 % (0.0-8.0) Creatinine 1.39 MG/DL (0.60-1.30) Estimat Glomerular Filtration Rate 50 ML/MIN (>89) Red Blood Count 3.99 MIL/MM3 (4.50-5.90) Hemoglobin 12.6 GM/DL (13.0-17.0) Hematocrit 37.6 % (39.0-51.0) Platelet Count 96 TH/MM3 (150-450) Total Protein 5.9 GM/DL (6.4-8.2) Albumin 3.0 GM/DL (3.4-5.0) Calcium Level 8.1 MG/DL (8.5-10.1) Imaging Last Impressions Chest X-Ray 03/08/17 0000 Signed Impressions: Service Date/Time: , March 08, 2017 08:17 - CONCLUSION: 1. No acute cardiopulmonary disease. 2. Aortic valve prosthesis in place. Adriano Duncan MD PE at Discharge GENERAL: Well-nourished, well-developed patient. SKIN: Warm and dry. HEAD: Normocephalic. EYES: No scleral icterus. No injection or drainage. NECK: Supple, trachea midline. No JVD or lymphadenopathy. CARDIOVASCULAR: Regular rate and rhythm without murmurs, gallops, or rubs. RESPIRATORY: Breath sounds equal bilaterally. No accessory muscle use. GASTROINTESTINAL: Abdomen soft, non-tender, nondistended. EXTREMITIES: No cyanosis, or edema. NEUROLOGICAL: Awake, alert, and oriented x 3. Non-focal. Hospital Course Patient underwent successful Left TF placement of a 26mm S3 valve. Patient has an episode of acute on chronic heart failure requiring IV diuresis. He was evaluated by EP per protocol no rhythm disturbances after implant. Ambulating without difficulty, no CV complaints. He is stable to be discharge home today. Pt Condition on Discharge: Good Discharge Disposition: Discharge Home Discharge Instructions DIET: Follow Instructions for: Heart Healthy Diet Speech Therapy-Diet Recommenda: Regular Activities you can perform: Regular-No Restrictions New Medications: Aspirin (Aspirin Low Strength) 81 Mg Chew 81 MG PO DAILY for Angina MDD 81 for 30 Days, #30 EA Clopidogrel (Plavix) 75 Mg Tab 75 MG PO DAILY for Angina for 30 Days, #30 TAB 9 Refills Metoprolol Tartrate (Metoprolol Tartrate) 25 Mg Tab 25 MG PO VENEER JOINTER PRN for SEE LABEL COMMENTS for 30 Days, #60 TAB Continued Medications: Atorvastatin (Atorvastatin) 20 Mg Tab 20 MG PO HS for Cholesterol Management, #30 TAB 0 Refills Ramipril (Ramipril) 10 Mg Cap 10 MG PO DAILY, #30 CAP 0 Refills Matthew Davalos MD Mar 09, 2017 09:09
--- NOTE | 2017-03-09 12:28 | EKG ---
Date Performed: 03/08/2017 Time Performed: 05:22:14 PTAGE: 71 years EKG: Sinus rhythm . Rightward axis Borderline ECG PREVIOUS TRACING : 03/07/2017 11.24 Lack of PACs compared to the prior tracing. DOCTOR: Thomas Mosqueda Interpretating Date/Time 03/09/2017 12:27:38
[2017-03-09 14:51] LABS: HEPARIN AB OD 0.218 O.D. (0.000-0.300); HEPARIN INDUCED PLATELET AB NEGATIVE (NEGATIVE)
== END 2017-03-09 10:10 | disposition home or self-care (01) | DRG 266 ==
LOC: HSDI 10:28 → UNDOADMIN 10:28 → HDIC 10:29 → HCPC 18:43 → HCVR 18:55 → HCIN 03-08 12:10
PROVIDERS: ADMIT Radiology Vascular & Interventional Radiology; ATTEND Radiology Vascular & Interventional Radiology
PROC: B3101ZZ Fluoroscopy of Thoracic Aorta using Low Osmolar Contrast (ICD-10-PCS; 2017-03-07)
PROC: 02RF38Z Replacement of Aortic Valve with Zooplastic Tissue, Percutaneous Approach (ICD-10-PCS; principal; 2017-03-07 15:00)
PROC: 027F3ZZ Dilation of Aortic Valve, Percutaneous Approach (ICD-10-PCS; 2017-03-07 15:00)
PROC: B246ZZ4 Ultrasonography of Right and Left Heart, Transesophageal (ICD-10-PCS; 2017-03-07 15:00)
DX: I35.0 Nonrheumatic aortic (valve) stenosis (principal); I50.33 Acute on chronic diastolic (congestive) heart failure; J44.9 Chronic obstructive pulmonary disease, unspecified; L03.119 Cellulitis of unspecified part of limb; Z00.6 Encounter for examination for normal comparison and control in clinical research program; I34.0 Nonrheumatic mitral (valve) insufficiency; I35.1 Nonrheumatic aortic (valve) insufficiency; I35.2 Nonrheumatic aortic (valve) stenosis with insufficiency; E78.5 Hyperlipidemia, unspecified; Z85.831 Personal history of malignant neoplasm of soft tissue; Z92.3 Personal history of irradiation; F41.9 Anxiety disorder, unspecified; I11.0 Hypertensive heart disease with heart failure; F17.200 Nicotine dependence, unspecified, uncomplicated; I73.9 Peripheral vascular disease, unspecified; Z82.3 Family history of stroke; Z80.9 Family history of malignant neoplasm, unspecified; I25.10 Atherosclerotic heart disease of native coronary artery without angina pectoris; Z98.1 Arthrodesis status; N28.9 Disorder of kidney and ureter, unspecified
CPT/HCPCS: 33210; 33361; 71010; 80048; 80053; 82948; 85002; 85025; 85027; 85610; 85730; 86022; 86850; 86900; 86901; 86920; 92986; 93005; 93308; 93567; C1760; C1769; C1893; G0269; J1644; J1940; J2250; J2720; J3010; J3370; J7030; J7050; Q9967